=== PATIENT | female | born 1950 | race Caucasian/White ===

== ENCOUNTER 2023-01-16 21:18 | Emergency (ER) | payer MEDICARE ==
[~2023-01-16] VITALS: Ht 160 cm; Wt 63.2 kg
[2023-01-16 21:43] LABS: BASOPHILS # (AUTO) 0.1 X10'3 (0-0.2); BASOPHILS % (AUTO) 0.2 % (0-1); EOSINOPHILS % (AUTO) 0 % (0-6); HEMOGLOBIN 10.3 g/dl (12.0-16.0)
[2023-01-16 21:45] LABS: HEMATOCRIT 33.3 % (35.0-45.0); MEAN CORPUSCULAR HGB CONC 30.8 g/dL (33.0-36.5); MEAN CORPUSCULAR VOLUME 87.7 FL (78-98); MEAN PLATELET VOLUME 7.6 FL (7.4-10.4); MONOCYTES # (AUTO) 1.2 X10'3 (0-0.9); MONOCYTES % (AUTO) 4.2 % (2-12); NEUTROPHILS # (AUTO) 11.8 X10'3 (1.8-7.7); NEUTROPHILS % (AUTO) 40.6 % (42-75); PLATELET COUNT 400 X10'3 (140-440)
[2023-01-16 21:50] LABS: WHITE BLOOD COUNT 29.1 X10'3 (4.5-11.0)
[2023-01-16 21:58] LABS: ALANINE AMINOTRANSFERASE 21 U/L (12-78); ALBUMIN 2.9 G/DL (3.4-5.0); ALBUMIN/GLOBULIN RATIO 0.8 (1.1-1.5); ALKALINE PHOSPHATASE 95 IU/L (46-116); ANION GAP 12 (8-16); ASPARTATE AMINO TRANSFERASE 13 U/L (10-37); BILIRUBIN,TOTAL 0.2 MG/DL (0.1-1.0); BLOOD UREA NITROGEN 24 MG/DL (7-18); BUN/CREATININE RATIO 24.5 (10.0-20.0); CALCIUM 8.6 MG/DL (8.5-10.1); CHLORIDE 108 MMOL/L (99-107); CREATININE 0.98 MG/DL (0.40-0.90); GLUCOSE 139 MG/DL (70-104); POTASSIUM 3.6 MMOL/L (3.5-5.1); SODIUM 146 MMOL/L (135-145); TOTAL PROTEIN 6.4 G/DL (6.4-8.2); eGFR 56 ML/MIN
[2023-01-16 22:04] LABS: MAGNESIUM 2.3 MG/DL (1.5-2.4)
[2023-01-16 22:39] LABS: TOTAL CELLS COUNTED 100
[2023-01-16 22:42] LABS: ANISOCYTOSIS 1+; PLATELET ESTIMATE NORMAL
[2023-01-17] MEDS ORDERED: apixaban 5mg tablet PO SCH (01:25)
[2023-01-17] MEDS ORDERED: QUET-1 PO (01:28)
[2023-01-17] MEDS ORDERED: APIX5TAB3 PO (01:28)
[2023-01-17 02:01] VITALS: BP 141/77
== END 2023-01-17 02:02 | disposition home or self-care (01) ==
LOC: ER 21:19
DX: J44.1 Chronic obstructive pulmonary disease with (acute) exacerbation (principal); E78.00 Pure hypercholesterolemia, unspecified; I10 Essential (primary) hypertension; F31.9 Bipolar disorder, unspecified; F17.200 Nicotine dependence, unspecified, uncomplicated; Z79.899 Other long term (current) drug therapy
CPT/HCPCS: 36415; 71046; 80053; 83735; 83880; 84145; 84484; 85007; 85025; 93005; 99285

== ENCOUNTER 2023-03-01 12:45 | Emergency (ER) | payer MEDICARE, OTHER ==
[~2023-03-01] VITALS: Ht 160 cm; Wt 63.6 kg
[~2023-03-01 12:45] MED LIST: APIX5TAB3 PO; QUET-1 PO
[2023-03-01] MEDS ORDERED: ipratropium/albuterol 3ml nebule NEB ONE (14:40)
[2023-03-01] MEDS ORDERED: BENZ-38 PO (14:53)
[2023-03-01 15:17] VITALS: BP 131/92
== END 2023-03-01 15:18 | disposition home or self-care (01) ==
LOC: ER 12:46
DX: J44.1 Chronic obstructive pulmonary disease with (acute) exacerbation (principal); E78.00 Pure hypercholesterolemia, unspecified; I10 Essential (primary) hypertension; F31.9 Bipolar disorder, unspecified; F17.200 Nicotine dependence, unspecified, uncomplicated; Z79.899 Other long term (current) drug therapy
CPT/HCPCS: 94640; 94760; 99283

== ENCOUNTER 2023-05-23 16:49 | Emergency (ER) | payer BC, OTHER ==
[~2023-05-23] VITALS: Ht 160 cm; Wt 66.6 kg
[2023-05-23 16:58] VITALS: BP 128/67; TEMP 98.7
[2023-05-23] MEDS ORDERED: ipratropium/albuterol 3ml nebule NEB PRN (18:10)
[2023-05-23] MEDS ORDERED: AZIT500T2 PO (20:17)
[2023-05-23] MEDS ORDERED: PRED20TA PO (20:17)
[2023-05-23] MEDS ORDERED: ALBU8HFA INH (20:17)
[2023-05-23] MEDS ORDERED: ipratropium/albuterol 3ml nebule NEB STA (20:25)
--- NOTE | 2023-05-23 20:35 | NUR ---
RT AT BS
[2023-05-23 20:42] VITALS: PULSE 76; RESP 16; O2SAT 92
--- NOTE | 2023-05-23 20:48 | NUR ---
CALLED [facility] TO VERIFY STATUS AND FLO AT [facility] STATED WE CAN SEND HER BACK THERE. [facility] WAS CALLED FOR THIS PT WITH A 45 MINUTE ETA.
[2023-05-23 20:49] VITALS: PULSE 76; RESP 16; O2SAT 100
== END 2023-05-23 21:00 | disposition home or self-care (01) ==
LOC: ER 16:50
DX: J44.9 Chronic obstructive pulmonary disease, unspecified (principal); I11.0 Hypertensive heart disease with heart failure; F31.9 Bipolar disorder, unspecified; E11.9 Type 2 diabetes mellitus without complications; Z79.899 Other long term (current) drug therapy
CPT/HCPCS: 71045; 94640; 94760; 99283

== ENCOUNTER 2023-09-12 13:56 | Emergency (ER) | payer BC ==
[~2023-09-12] VITALS: Ht 160 cm; Wt 61.0 kg
[~2023-09-12 13:56] MED LIST changes: +ALBU8HFA INH; +PRED20TA PO
[2023-09-12 14:00] VITALS: BP 102/63; TEMP 97.6
[2023-09-12] MEDS ORDERED: ipratropium/albuterol 3ml nebule NEB ONE (17:00)
[2023-09-12 17:12] VITALS: PULSE 73; RESP 16; O2SAT 94
[2023-09-12 17:21] VITALS: PULSE 78; RESP 18; O2SAT 99
[2023-09-12] MEDS ORDERED: AZIT250T13 PO (17:29)
[2023-09-12] MEDS ORDERED: ALBU8HFA INH (17:29)
== END 2023-09-12 17:58 | disposition home or self-care (01) ==
LOC: ER 13:57
DX: J44.1 Chronic obstructive pulmonary disease with (acute) exacerbation (principal); J20.1 Acute bronchitis due to Hemophilus influenzae; E78.00 Pure hypercholesterolemia, unspecified; I10 Essential (primary) hypertension; J44.9 Chronic obstructive pulmonary disease, unspecified; F31.9 Bipolar disorder, unspecified; Z79.899 Other long term (current) drug therapy
CPT/HCPCS: 94640; 94760; 99283

== ENCOUNTER 2023-11-22 18:09 | Emergency (ER) | payer BC ==
[~2023-11-22] VITALS: Ht 160 cm; Wt 63.4 kg
[2023-11-22 18:12] VITALS: TEMP 97.5
[2023-11-22] MEDS: ondansetron/PF 4mg/2ml inj IV ONE (19:24)
[2023-11-22] MEDS: morphine 4 MG/ML inj SYRINge IV ONE (19:28)
[2023-11-22 19:52] VITALS: BP 127/78; PULSE 80; RESP 14; O2SAT 91
== END 2023-11-22 19:51 | disposition home or self-care (01) ==
LOC: ER 18:09
DX: S70.02XA Contusion of left hip, initial encounter (principal); Z79.899 Other long term (current) drug therapy; X58.XXXA Exposure to other specified factors, initial encounter; Y93.89 Activity, other specified; Y92.89 Other specified places as the place of occurrence of the external cause; Y99.8 Other external cause status
CPT/HCPCS: 73522; 96374; 96375; 99284; J2270; J2405; 96366

== ENCOUNTER → 2024-01-22 | Emergency (ER) | payer BC ==
[~2024-01-22] VITALS: Ht 160 cm; Wt 65.0 kg
[~2024-01-22] MED LIST changes: +BENZ-38 PO
[2024-01-22 18:31] VITALS: TEMP 98
[2024-01-22 20:11] LABS: BASOPHILS # (AUTO) 0.1 X10'3 (0-0.2); BASOPHILS % (AUTO) 0.7 % (0-1); EOSINOPHILS # (AUTO) 0.2 X10'3 (0-0.9); EOSINOPHILS % (AUTO) 2.2 % (0-6); HEMOGLOBIN 10.6 g/dl (12.0-16.0); MONOCYTES # (AUTO) 0.4 X10'3 (0-0.9); PLATELET COUNT 348 X10'3 (140-440)
[2024-01-22 20:13] LABS: HEMATOCRIT 33.2 % (35.0-45.0); LYMPHOCYTES # (AUTO) 5.3 X10'3 (1.1-4.8); MEAN CORPUSCULAR HEMOGLOBIN 26.1 PG (27.0-31.0); MEAN CORPUSCULAR HGB CONC 31.9 g/dL (33.0-36.5); MEAN CORPUSCULAR VOLUME 81.8 FL (78-98); MEAN PLATELET VOLUME 8.1 FL (7.4-10.4); MONOCYTES % (AUTO) 4.3 % (2-12); NEUTROPHILS # (AUTO) 3.5 X10'3 (1.8-7.7); NEUTROPHILS % (AUTO) 36.8 % (42-75); RED BLOOD COUNT 4.06 X10'6 (4.20-5.60); RED CELL DISTRIBUTION WIDTH 15.8 % (11.5-14.5); WHITE BLOOD COUNT 9.5 X10'3 (4.5-11.0)
[2024-01-22 20:22] LABS: ALBUMIN 3.5 G/DL (3.4-5.0); ANION GAP 6 (8-16); BLOOD UREA NITROGEN 22 MG/DL (7-18); BUN/CREATININE RATIO 25.6 (10.0-20.0); CALCIUM 8.9 MG/DL (8.5-10.1); CHLORIDE 107 MMOL/L (99-107); CREATININE 0.86 MG/DL (0.40-0.90); GLUCOSE 108 MG/DL (70-104); POTASSIUM 3.8 MMOL/L (3.5-5.1); PRO BRAIN NATRIURETIC PEPTIDE 212 PG/ML (0-125); SODIUM 143 MMOL/L (135-145); TOTAL CARBON DIOXIDE 30.1 MMOL/L (24-32); eCRCL 48 ML/MIN; eGFR 65 ML/MIN
[2024-01-22 21:37] LABS: PLATELET ESTIMATE NORMAL; TOTAL CELLS COUNTED 100
[2024-01-22 21:39] LABS: SMUDGE CELLS FEW
[2024-01-22 22:44] VITALS: BP 157/84; PULSE 67; RESP 18; O2SAT 99
== END | disposition home or self-care (01) ==
LOC: ER 18:03
DX: R05.9 Cough, unspecified (principal)
CPT/HCPCS: 36415; 71046; 80048; 83880; 85007; 85025; 87040; 93005; 99285

== ENCOUNTER 2024-02-13 14:53 | Emergency (ER) | payer BC ==
[~2024-02-13] VITALS: Ht 160 cm; Wt 62.7 kg
[2024-02-13 15:31] VITALS: BP 135/66; PULSE 76; RESP 18; TEMP 99.3; O2SAT 97
[2024-02-13] MEDS ORDERED: HYDR-3965 PO (16:20)
== END 2024-02-13 17:10 | disposition home or self-care (01) ==
LOC: ER 14:54
DX: M20.42 Other hammer toe(s) (acquired), left foot (principal); I25.10 Atherosclerotic heart disease of native coronary artery without angina pectoris; E78.00 Pure hypercholesterolemia, unspecified; I10 Essential (primary) hypertension; J44.9 Chronic obstructive pulmonary disease, unspecified; E11.9 Type 2 diabetes mellitus without complications; F41.9 Anxiety disorder, unspecified; F32.A Depression, unspecified; Z86.711 Personal history of pulmonary embolism
CPT/HCPCS: 73630; 99283

== ENCOUNTER 2024-02-22 09:14 | Emergency (ER) | payer BC ==
[~2024-02-22] VITALS: Ht 165.1 cm; Wt 56.0 kg
[~2024-02-22 09:14] MED LIST changes: +HYDR-3965 PO
[2024-02-22 09:27] VITALS: TEMP 98.2
[2024-02-22] MEDS: albuterol 2.5 MG/3 ML nebule NEB SCH (10:44)
[2024-02-22 10:45] VITALS: PULSE 67; RESP 16; O2SAT 99
[2024-02-22 10:52] VITALS: PULSE 68; RESP 16; O2SAT 98
[2024-02-22] MEDS: methylPREDNISolone sod succ 125mg/2ml vial IV ONE (11:04)
[2024-02-22 11:08] VITALS: BP 142/64; PULSE 68; O2SAT 93
[2024-02-22 11:18] LABS: BASOPHILS % (AUTO) 0.3 % (0-1); EOSINOPHILS # (AUTO) 0.2 X10'3 (0-0.9); EOSINOPHILS % (AUTO) 1.7 % (0-6); HEMATOCRIT 31.5 % (35.0-45.0); HEMOGLOBIN 9.5 g/dl (12.0-16.0); LYMPHOCYTES # (AUTO) 3.5 X10'3 (1.1-4.8); MEAN CORPUSCULAR HEMOGLOBIN 23.4 PG (27.0-31.0); MEAN CORPUSCULAR HGB CONC 30.3 g/dL (33.0-36.5); MEAN CORPUSCULAR VOLUME 77.2 FL (78-98); MEAN PLATELET VOLUME 8.3 FL (7.4-10.4); MONOCYTES # (AUTO) 0.4 X10'3 (0-0.9); MONOCYTES % (AUTO) 4.3 % (2-12); NEUTROPHILS # (AUTO) 6.1 X10'3 (1.8-7.7); NEUTROPHILS % (AUTO) 59.7 % (42-75); PLATELET COUNT 247 X10'3 (140-440); RED BLOOD COUNT 4.07 X10'6 (4.20-5.60); RED CELL DISTRIBUTION WIDTH 17.7 % (11.5-14.5); WHITE BLOOD COUNT 10.3 X10'3 (4.5-11.0)
[2024-02-22 11:34] LABS: ALANINE AMINOTRANSFERASE 23 U/L (12-78); ALBUMIN 3.2 G/DL (3.4-5.0); ALKALINE PHOSPHATASE 103 IU/L (46-116); ANION GAP 5 (8-16); ASPARTATE AMINO TRANSFERASE 25 U/L (10-37); BILIRUBIN,TOTAL 0.2 MG/DL (0.1-1.0); BLOOD UREA NITROGEN 16 MG/DL (7-18); BUN/CREATININE RATIO 21.6 (10.0-20.0); CALCIUM 8.5 MG/DL (8.5-10.1); CHLORIDE 106 MMOL/L (99-107); CREATININE 0.74 MG/DL (0.40-0.90); GLUCOSE 97 MG/DL (70-104); POTASSIUM 3.2 MMOL/L (3.5-5.1); SODIUM 142 MMOL/L (135-145); TOTAL CARBON DIOXIDE 31.4 MMOL/L (24-32); TOTAL PROTEIN 6.4 G/DL (6.4-8.2); eCRCL 60 ML/MIN; eGFR 77 ML/MIN
== END 2024-02-22 13:18 | disposition home or self-care (01) ==
LOC: ER 09:14
DX: J44.9 Chronic obstructive pulmonary disease, unspecified (principal); E78.00 Pure hypercholesterolemia, unspecified; I10 Essential (primary) hypertension; E11.9 Type 2 diabetes mellitus without complications; F41.9 Anxiety disorder, unspecified; F32.A Depression, unspecified; Z86.73 Personal history of transient ischemic attack (TIA), and cerebral infarction without residual deficits; Z79.52 Long term (current) use of systemic steroids
CPT/HCPCS: 36415; 71045; 80053; 84484; 85025; 93005; 94640; 96374; 99285; J2919; 94760

== ENCOUNTER 2024-09-19 19:24 | Emergency (ER) | payer BC ==
[~2024-09-19] VITALS: Ht 160 cm; Wt 60.6 kg
[~2024-09-19 19:24] MED LIST changes: -BENZ-38 PO; -HYDR-3965 PO
[2024-09-19 20:03] LABS: BASOPHILS # (AUTO) 0.1 X10'3 (0-0.2); BASOPHILS % (AUTO) 0.7 % (0-1); EOSINOPHILS # (AUTO) 0.4 X10'3 (0-0.9); EOSINOPHILS % (AUTO) 3.3 % (0-6); HEMOGLOBIN 10.4 g/dl (12.0-16.0); LYMPHOCYTES # (AUTO) 4.9 X10'3 (1.1-4.8); LYMPHOCYTES % (AUTO) 41.9 % (21-51); MEAN CORPUSCULAR HEMOGLOBIN 26.3 PG (27.0-31.0); MEAN CORPUSCULAR HGB CONC 31.4 g/dL (33.0-36.5); MEAN CORPUSCULAR VOLUME 83.5 FL (78-98); MEAN PLATELET VOLUME 8.1 FL (7.4-10.4); MONOCYTES # (AUTO) 0.4 X10'3 (0-0.9); MONOCYTES % (AUTO) 3.4 % (2-12); NEUTROPHILS % (AUTO) 50.7 % (42-75); PLATELET COUNT 430 X10'3 (140-440); RED BLOOD COUNT 3.95 X10'6 (4.20-5.60); RED CELL DISTRIBUTION WIDTH 16.1 % (11.5-14.5); WHITE BLOOD COUNT 11.8 X10'3 (4.5-11.0)
[2024-09-19 20:06] LABS: ALANINE AMINOTRANSFERASE 15 U/L (12-78); ALBUMIN 3.1 G/DL (3.4-5.0); ALBUMIN/GLOBULIN RATIO 0.8 (1.1-1.5); ALKALINE PHOSPHATASE 156 IU/L (46-116); ANION GAP 9 (8-16); ASPARTATE AMINO TRANSFERASE 17 U/L (10-37); BILIRUBIN,TOTAL 0.3 MG/DL (0.1-1.0); BLOOD UREA NITROGEN 18 MG/DL (7-18); BUN/CREATININE RATIO 23.1 (10.0-20.0); CALCIUM 8.7 MG/DL (8.5-10.1); CHLORIDE 105 MMOL/L (99-107); CREATININE 0.78 MG/DL (0.40-0.90); GLUCOSE 117 MG/DL (70-104); POTASSIUM 3.6 MMOL/L (3.5-5.1); SODIUM 142 MMOL/L (135-145); TOTAL PROTEIN 7.1 G/DL (6.4-8.2); eCRCL 52 ML/MIN; eGFR 72 ML/MIN
[2024-09-19] MEDS ORDERED: ipratropium/albuterol 3ml nebule NEB PRN (21:15)
[2024-09-19] MEDS: ipratropium/albuterol 3ml nebule NEB PRN (21:49)
[2024-09-19 21:50] VITALS: PULSE 78; RESP 20; O2SAT 92
[2024-09-19 21:59] VITALS: PULSE 81; RESP 18; O2SAT 99
[2024-09-19 22:30] VITALS: BP 114/85; PULSE 96; RESP 18; TEMP 98.6; O2SAT 96
[2024-09-19] MEDS ORDERED: FLUT1DIS20 INH (22:30)
== END 2024-09-19 22:42 | disposition home or self-care (01) ==
LOC: ER 19:24
DX: J44.9 Chronic obstructive pulmonary disease, unspecified (principal); E78.00 Pure hypercholesterolemia, unspecified; I10 Essential (primary) hypertension; E11.9 Type 2 diabetes mellitus without complications; F32.A Depression, unspecified; F41.9 Anxiety disorder, unspecified; Z87.891 Personal history of nicotine dependence; Z86.73 Personal history of transient ischemic attack (TIA), and cerebral infarction without residual deficits; Z98.890 Other specified postprocedural states
CPT/HCPCS: 36415; 71046; 80053; 85025; 94640; 94760; 99284

== ENCOUNTER 2025-01-22 15:06 | Inpatient (IN) | payer BC ==
[~2025-01-22] VITALS: Ht 160 cm; Wt 62.3 kg
[2025-01-22] VITALS (9 sets, daily range): BP systolic 98–121; BP diastolic 39–62; PULSE 60–87; RESP 16–20; TEMP 97.5–98.4; O2SAT 96–98
[~2025-01-22 15:06] MED LIST changes: +FLUT1DIS20 INH
--- NOTE | 2025-01-22 15:18 | ELECTROCARDIOGRAPH REPORT ---
[facility] Test Date: 2025-01-22 Test Time: 15:16:10 Pat Name: MÓNICA JETT Department: EMERGENCY ROOM Room: Gender: F Sheet Hanger: : 1950 Requested By: NIXON AYERS Order Number: [id number] Reading MD: Dr. Augusto Durham Measurements Intervals [place] Rate: 97 P: 88 IA: 164 QRS: 91 QRSD: 72 T: 65 QT: 328 QTc: 417 Interpretive Statements Sinus rhythm Right axis deviation Electronically Signed On 01-22-2025 19:21:[address] Augusto Durham Please click the below link to view image of tracing.
--- NOTE | 2025-01-22 15:29 | Physician Documentation ---
History of Present Illness ~ Chief Complaint: Leg Pain Stated Complaint: SOB Time Seen by MD: 17:54 OK to notify your PCP?: Yes Primary Medical Doctor: Kevin Source: patient Mode of Arrival: POV Exam Limitations: no limitations HPI This is a 74-year-old female who states she was homeless and currently resides at the [facility]. She states that is as of late she has been increasingly more dizzy, weak, shortness of breath with the restless legs. She states this has been going on for years however it has gotten progressively worse as of late. She does not give an exact timeframe. She says she has had dark stools however she states she was taking a medication for her CLL that causes dark stools. She denies frankly bloody stools. She denies abdominal pain. She denies vomiting or hematemesis. Tetanus witin 5 years: No Medication Reconciliation Allergies: Coded Allergies: No Known Allergies (Unverified , 01/22/25) Scheduled Apixaban (Eliquis), 1 TAB PO Q12H Budesonide/Formoterol Fumarate (Budesonide-Formoterol 80-4.5), 2 PUFFS PO BID, (Reported) Fluticasone/Salmeterol (Advair 250-50 Diskus), 1 PUFFS INH Q12H Prednisone* (Prednisone*), 2 TAB PO DAILY Quetiapine Fumarate (Quetiapine Fumarate), 1 TAB PO HS, (Reported) Scheduled PRN albuterol inhaler (Pro-Air Inhaler), 1 PUFF INH QID PRN for cough & congestion Miscellaneous Medications Alprazolam (Alprazolam), (Reported) Pramipexole Di-Hcl (Pramipexole Dihydrochloride), (Reported) albuterol inhaler (Pro-Air Inhaler), (Reported) Discontinued Medications Quetiapine Fumarate (Seroquel), 1 TAB PO HS Discontinued Reason: patient no longer taking Past Medical History Past Medical History: CVA/TIA/Stroke, High Cholesterol, Hypertension, COPD, Pulmonary Embolism, Diabetes, Leukemia, Anxiety, Depression Past Surgical History: orthopedic surgeries Other Past Surgical History: eye surgery Alcohol Use: None Drug Use: none Lives In: Home Physical Exam Vital Signs: Temperature: 98.7, Source: Temporal, Heart Rate: 99, Respiratory Rate: 18, BP: 80/36, Pulse Oximetry: 96, Weight: 62.270 Pulse Oximetry Reflects: adequate oxygenation Physical Exam VITALS: Reviewed and as above. GENERAL: Alert, nontoxic appearing, no apparent distress. RESPIRATORY: No increased work of breathing, no respiratory distress, speaking in full clear sentences General Appearance: alert, WD/WN, no apparent distress Head: normal inspection EENT: PERRL/EOMI, normal ENT inspection Neck: non-tender, full range of motion, normal alignment, normal inspection Respiratory No accessory muscle use or retractions. Lungs are clear to auscultation in all mackenzie. Cardiovascular No rubs, gallops or murmurs. No peripheral edema, cyanosis or clubbing of the extremities. Gastrointestinal Stool guaiac negative Distal Function: normal capillary refill Skin The skin appears slightly pale and cool however dry. Neurologic: oriented x4, engraver block II-XII nml as tested, memory intact, oriented to time, oriented to person, oriented to place, oriented to events Psychiatric: normal mood/affect Progress Results/Orders Reviewed/noted all lab results: Yes Results/Orders Orders - MATT AYERS Chest,Single View (01/22/25 15:29) Monitor (01/22/25 15:14) Saline Lock (01/22/25 15:14) Oxygen (01/22/25 15:14) Cbc/Diff (01/22/25 15:14) Electrocardiogram (01/22/25 15:14) Pathology Review (01/22/25 15:19) Lrpc - Active Bleeding (01/22/25 17:55) Page Hospitalist (01/22/25 18:36) Completed Orders - MATT AYERS Chest,Single View (01/22/25 15:29) PBNP (01/22/25 15:14) Electrocardiogram (01/22/25 15:14) CMP (01/22/25 15:14) Hs Troponin I W Calculations (01/22/25 15:14) Hs Troponin I W Calculations (01/22/25 17:14) Hs Troponin I W Calculations (01/22/25 18:14) Normal Saline 1000ml (Sodium Chloride 10 (01/22/25 17:55) Medications Received in ER Medications (Trade) Dose Ordered Sig/Elida Route PRN Reason Start Time Stop Time Status Last Admin Dose Admin Sodium Chloride 1,000 ml @ 1,000 mls/hr ONCE ONCE IV 01/22/25 17:55 01/22/25 18:54 DC 01/22/25 18:44 1,000 MLS/HR Vital Signs 01/22/25 01/22/25 01/22/25 01/22/25 15:10 18:14 18:14 19:00 Temp 98.7 98.7 97.8 Pulse 99 86 84 Resp 18 16 16 18 B/P (MAP) 80/36 101/38 (59) 117/42 (67) Pulse Ox 96 99 97 O2 Flow Rate 0 01/22/25 01/22/25 01/22/25 01/22/25 19:07 19:20 19:25 19:25 Temp 97.6 98.4 98.4 Pulse 87 82 79 Resp 16 16 16 B/P (MAP) 117/45 102/48 102/48 Pulse Ox 100 O2 Delivery Nasal Cannula* O2 Flow Rate 2 FiO2 28 Laboratory Tests Test 01/22/25 15:19 01/22/25 17:12 01/22/25 18:33 White Blood Count 6.1 Red Blood Count 2.98 L Hemoglobin 5.1 *L Hematocrit 18.3 *L Mean Corpuscular Volume 61.4 L Mean Corpuscular Hemoglobin 17.2 L Mean Corpuscular Hemoglobin Concent 28.0 L Red Cell Distribution Width 22.4 H Platelet Count 237 Mean Platelet Volume 8.4 Neutrophils (%) (Auto) 49.8 Lymphocytes (%) (Auto) 43.7 Monocytes (%) (Auto) 4.3 Eosinophils (%) (Auto) 1.6 Basophils (%) (Auto) 0.6 Neutrophils # (Auto) 3.0 Lymphocytes # (Auto) 2.7 Monocytes # (Auto) 0.3 Eosinophils # (Auto) 0.1 Basophils # (Auto) 0.0 CBC Comment Platelet Estimate Normal Red Blood Cell Morphology Perf Polychromasia 1+ Hypochromasia 2+ Basophilic Stippling Anisocytosis 3+ Microcytosis 2+ Tear Drop Cells 1+ Stomatocytes Few Elliptocytes Few Sodium Level 144 Potassium Level 4.0 Chloride Level 108 H Carbon Dioxide Level 26.0 Anion Gap 10 Blood Urea Nitrogen 24 H Creatinine 0.97 H Estimated GFR/1.73 m2 56 BUN/Creatinine Ratio 24.7 H Glucose Level 109 H Calcium Level 8.3 L Total Bilirubin 0.3 Aspartate Amino Transf (AST/SGOT) 16 Alanine Aminotransferase (ALT/SGPT) 25 Alkaline Phosphatase 101 Troponin I High Sensitivity 12 15 11 Pro-B-Type Natriuretic Peptide 388 H Total Protein 5.7 L Albumin 3.3 L Globulin 2.4 L Albumin/Globulin Ratio 1.4 Chemistry Comments Troponin I High Sens Percent Delta 25 26 Troponin I Hi Sens Absolute Change 3 -4 EKG/XRAY/CT/US/VASC/MRI EKG : Intepreting Monitor?: No Additional Comment Twelve lead EKGs interpreted by me: Normal sinus rhythm rate of 97. Right axis deviation. No ectopy, ischemia, ST elevation or depression. Chest X-Ray : Interpreted By: self Views: 1 VIEW Additional Comments Chest x-ray one view interpreted by me: No acute disease process. The lung mackenzie and cardiac silhouette are appropriate. No obvious bony abnormalities. Soft tissues unremarkable. Medical Decision Making Findings MSE performed in triage and patient returned to ED lobby by nursing staff The patient was found to have a hemoglobin of 5.1 with a hematocrit of 18.3. This undoubtedly is responsible for all of her current symptoms of the dizziness, shortness of breath and probably the restless legs as well. I ordered 2 units packed RBCs to be transfused. The patient's diastolic blood pressure has been running in the 30s so before the blood was available I ordered weight based normal saline at 1500 cc. The patient was stool guaiac negative. The patient was will require hospitalization so we will page has been placed with the hospitalist. Additional Comment Dizziness. Shortness of breath. Anemia. Restless leg syndrome. COPD exacerbation. Departure Disposition: ADMITTED INPATIENT Admitted to Inpatient Unit: yes, to hospitalist Admission Level of Care: Med/Surg Impression: Primary Impression: Low hemoglobin Additional Impression: History of chronic lymphocytic leukemia Condition: Guarded Referrals: NO PRIMARY CARE PROVIDER (PCP) Critical Care Note Total Time (mins): 45 Critical Care Note This patient was found to have hemoglobin of 5.1 with a hematocrit of 18. The patient was very symptomatic and had a blood pressure of 80s over 30s. She required immediate fluid resuscitation follow up by emergent blood products and admission. Signature Scribe Signature: No scribe Attestation: The note accurately reflects work and decisions made by me.Matt TOWNSEND 01/22/25 19:51 RIRI CASSIDYP Jan 22, 2025 15:28 MATT AYERS PA Jan 22, 2025 18:08
[2025-01-22 15:30] LABS: BASOPHILS % (AUTO) 0.6 % (0-1); EOSINOPHILS # (AUTO) 0.1 X10'3 (0-0.9); EOSINOPHILS % (AUTO) 1.6 % (0-6); LYMPHOCYTES # (AUTO) 2.7 X10'3 (1.1-4.8); LYMPHOCYTES % (AUTO) 43.7 % (21-51); MEAN CORPUSCULAR HEMOGLOBIN 17.2 PG (27.0-31.0); MEAN CORPUSCULAR VOLUME 61.4 FL (78-98); MEAN PLATELET VOLUME 8.4 FL (7.4-10.4); MONOCYTES # (AUTO) 0.3 X10'3 (0-0.9); MONOCYTES % (AUTO) 4.3 % (2-12); NEUTROPHILS % (AUTO) 49.8 % (42-75); PLATELET COUNT 237 X10'3 (140-440); RED BLOOD COUNT 2.98 X10'6 (4.20-5.60); RED CELL DISTRIBUTION WIDTH 22.4 % (11.5-14.5); WHITE BLOOD COUNT 6.1 X10'3 (4.5-11.0)
--- NOTE | 2025-01-22 15:46 | RADIOLOGY REPORT ---
CHEST RADIOGRAPH Indication: CP Technique: Single frontal view of the chest was obtained Comparison: DI CHEST,SINGLE VIEW on DOS: 08/18/24, DI CHEST,SINGLE VIEW on DOS: 02/22/24, DI CHEST,SIN GLE VIEW on DOS: 05/23/23 FINDINGS: Lines and Tubes: None Lungs: No focal consolidation. Pleura: No effusion. No pneumothorax. Cardiomediastinal contours: Unremarkable Bones: No acute osseous abnormality. IMPRESSION: 1. No acute cardiopulmonary disease.
[2025-01-22 15:57] LABS: ALANINE AMINOTRANSFERASE 25 U/L (12-78); ALBUMIN 3.3 G/DL (3.4-5.0); ALBUMIN/GLOBULIN RATIO 1.4 (1.1-1.5); ALKALINE PHOSPHATASE 101 IU/L (46-116); ANION GAP 10 (8-16); ASPARTATE AMINO TRANSFERASE 16 U/L (10-37); BILIRUBIN,TOTAL 0.3 MG/DL (0.1-1.0); BLOOD UREA NITROGEN 24 MG/DL (7-18); BUN/CREATININE RATIO 24.7 (10.0-20.0); CALCIUM 8.3 MG/DL (8.5-10.1); CHLORIDE 108 MMOL/L (99-107); CREATININE 0.97 MG/DL (0.40-0.90); GLUCOSE 109 MG/DL (70-104); PRO BRAIN NATRIURETIC PEPTIDE 388 PG/ML (0-125); SODIUM 144 MMOL/L (135-145); TOTAL PROTEIN 5.7 G/DL (6.4-8.2); eCRCL 42 ML/MIN; eGFR 56 ML/MIN
[2025-01-22 16:13] LABS: HEMATOCRIT 18.3 % (35.0-45.0); HEMOGLOBIN 5.1 g/dl (12.0-16.0)
[2025-01-22 17:17] LABS: ANISOCYTOSIS 3+; HYPOCHROMASIA 2+; MICROCYTOSIS 2+; PLATELET ESTIMATE NORMAL
[2025-01-22 17:19] LABS: ELLIPTOCYTES FEW; POLYCHROMASIA 1+; TEAR DROP CELLS 1+
[2025-01-22 17:20] LABS: STOMATOCYTES FEW
[2025-01-22] MEDS: normal saline 1000ml 1,000 ML IV ONE (18:44)
[2025-01-22] MEDS ORDERED: BUDE10.27 PO (19:25)
[2025-01-22] MEDS ORDERED: ondansetron/PF 4mg/2ml inj IV PRN (19:25)
[2025-01-22] MEDS ORDERED: QUET100T34 PO (19:25)
[2025-01-22] MEDS ORDERED: PRAM0.258 (19:25)
[2025-01-22] MEDS ORDERED: potassium Cl 40MEQ/1/2NS 520ml 520 ML IV PRN (19:25)
[2025-01-22] MEDS ORDERED: magnesium sulf-water 2g/50mL 50 ML IV PRN (19:25)
[2025-01-22] MEDS ORDERED: magnesium Cl slow-release 64mg tablet PO PRN (19:25)
[2025-01-22] MEDS ORDERED: morphine 2 MG/ML inj. syringe IV PRN (19:25)
[2025-01-22] MEDS ORDERED: potassium Cl 20 mEq SR tablet PO PRN ×2 (19:25)
[2025-01-22] MEDS ORDERED: acetaminophen 325mg tablet PO PRN (19:25)
[2025-01-22] MEDS ORDERED: magnesium sulf-water 4G/100mL 100 ML IV PRN (19:25)
[2025-01-22] MEDS ORDERED: magnesium hydroxide 30ml (MOM) UD suspension PO PRN (19:25)
[2025-01-22] MEDS ORDERED: ALPR1TAB7 (19:25)
[2025-01-22] MEDS ORDERED: ALBU8HFA (19:25)
[2025-01-22] MEDS ORDERED: mag hydrox/Alum hydrox/simeth 30ml oral suspension PO PRN (19:25)
[2025-01-22] MEDS: K and/or MAG REPLACEMENT MC SCH (20:00)
[2025-01-22] MEDS: morphine 2 MG/ML inj. syringe IV PRN (20:35)
[2025-01-22] MEDS: docusate sod 100mg capsule PO SCH (20:41)
--- NOTE | 2025-01-22 21:01 | HISTORY AND PHYSICAL-Residence ---
History & Physical Providers to CC Resident Creating Document: MARIO FOSS CC: TAURUS ONEILL MD ~ History of Present Illness Primary Medical Doctor: Kevin Reason for Admit\Complaint: Generalized weakness History of Present Illness Patient is a 74-year-old female with history of CLL, hypertension, stroke, gastric ulcer and hyperlipidemia who came to the ED due to generalized weakness. Patient reports that she has been experiencing increasing weakness for the past 2 weeks, accompanied by worsening dizziness/lightheadedness worse when standing, as well as shortness of breath on exertion. She denies orthopnea or PND. She also denies fevers, chills, body aches, chest pain, palpitations or any other subjective symptoms. She does report having dark formed stools for a long time now. Of note, patient was diagnosed with CLL in 2011, and was being followed by Dr. Blake, but has not followed with her in a long time. Currently only follows with her PCP Dr. Brown. She does report she takes iron pills for chronic anemia, she does not recall her baseline hemoglobin. Allergies: Coded Allergies: No Known Allergies (Unverified , 01/22/25) Home Medications Home Medications Active Advair 250-50 Diskus (Salmeterol Xinafoate/Fluticasone) 1 Each Disk.w.dev 1 Puffs INH Q12H 30 Days Prednisone* (Prednisone) 20 Mg Tablet 2 Tab PO DAILY 5 Days Pro-Air Inhaler (Albuterol) 8.5 Gm Inhaler 1 Puff INH QID PRN Eliquis (Apixaban) 5 Mg Tablet 1 Tab PO Q12H 30 Days Reported Pro-Air Inhaler (Albuterol) 8.5 Gm Inhaler Alprazolam 1 Mg Tablet Budesonide-Formoterol 80-4.5 (Budesonide/Formoterol Fumarate) 80 Mcg-4.5 Mcg/Actuation Hfa.aer.ad 2 Puffs PO BID Quetiapine Fumarate 100 Mg Tablet 1 Tab PO HS Pramipexole Dihydrochloride (Pramipexole Di-Hcl) 0.25 Mg Tablet Past Medical History Past Medical History CLL, hypertension, stroke, gastric ulcer and hyperlipidemia Past Surgical History Surgical History Comment Foot surgery x3 Unspecified eye surgery Family History Family History: FH: heart disease FATHER FH: leukemia MOTHER FH: stroke FATHER FH: throat cancer Sister FH: type 2 diabetes FATHER Past Social History Smoking: Cigarettes (Half pack a day. Smokes since age 26) Alcohol Use: None Drug Use: None Lives In: Homeless (Lives at the [facility]) ROS ROS All systems were reviewed except for pertinent positives mentioned in HPI Constitutional: Reports: see HPI Eyes: Denies: no symptoms reported, see HPI, pain, discharge, blurred vision, double vision, itching, photophobia, redness, tearing, other ENT: Denies: no symptoms reported, see HPI, ear pain, ear bleeding, ear discharge, hearing loss, ear ringing, nose pain, nose bleeding, nose congestion, nose discharge, throat pain, throat swelling, voice change, mouth pain, mouth bleeding, mouth swelling, other Respiratory: Reports: see HPI Cardiovascular: Denies: no symptoms reported, see HPI, chest pain, left arm pain, diaphoresis, lightheadedness, syncope, edema, palpitations, irregular heart rate, other Gastrointestinal: Reports: see HPI Genitourinary: Denies: no symptoms reported, see HPI, burning, discharge, dysuria, frequency, flank pain, hematuria, incontinence, pain, decreased urine output, urgency, other Female Genitalia: Denies: no reported symptoms, see HPI, vaginal discharge, vaginal pain, pelvic pain, abnormal bleeding, dyspareunia, , other Neurological: Reports: see HPI Musculoskeletal: Denies: no symptoms reported, see HPI, pain, swelling, back pain, gout, joint pain, joint swelling, muscle pain, muscle swelling, muscle stiffness, neck pain, other Integumentary: Denies: no symptoms reported, see HPI, rash, itching, lesions, lumps, bruise(s), wound(s), laceration(s), dryness, change in color, other Allergic/Immunologic: Denies: no symptoms reported, see HPI, hives, itching, frequent infections, difficulty healing, other Hematologic/Lymphatic: Denies: no symptoms reported, see HPI, anemia, blood clots, easy bleeding, easy bruising, swollen glands, other Endocrine: Denies: no symptoms reported, see HPI, excessive sweating, flushing, intolerance to cold, intolerance to heat, increased hunger, increased thrist, increased urine, unexplained weight gain, unexplained weight loss, other Psychiatric: Denies: no symptoms reported, see HPI, depression, anxiety, sleeplessness, hopeless, suicidal, hallucinations, other Exam Vitals: Vital Signs Date Time Temp Pulse Resp B/P (MAP) Pulse Ox O2 Delivery O2 Flow Rate FiO2 01/22/25 20:35 14 01/22/25 20:00 97.5 74 106/39 01/22/25 19:20 100 Nasal Cannula* 2 28 General: General: awake, alert oriented to place, time, and person HEENT: Marked pallor present, no icterus, moist mucous membranes Neck: No masses and tenderness Resp: Unlabored. Lungs clear to auscultation bilaterally. Heart: Regular Rate and rhythm, normal S1 and S2 without murmur, rub or gallop Abdomen: Soft and non tender no organomegaly, no guarding and rigidity, bowel sounds present Neuro: No weakness in the upper and lower limb muscles, power of the muscles 4/5 bilateral upper and lower muscles, knee reflex present bilaterally. Cranial nerves intact Extremities: No cyanosis,clubbing or edema Skin: Warm and Dry. No lesions Advance Care Planning Advanced Care plannin - 30 Minutes Additional Plan Patient is a 74-year-old female with history of CLL, hypertension, stroke, and hyperlipidemia who came to the ED due to generalized weakness. Admitted for evaluation and management of severe anemia. Severe microcytic hypochromic anemia History of CLL History of iron-deficiency anemia GI bleed ruled out Patient used to follow with Dr. Blake, currently following with PCP Dr. Brown Hemoglobin is 5.1, hematocrit 18 Last hemoglobin per our records was 10.4 in 08/2024 Hemoccult in ED was negative per ED doc, however, not reported in labs. Dark stools possibly related to iron supplements. Occult blood was ordered Iron studies ordered 2 units of PRBC ordered in ED, currently receiving first one Will continue monitoring H&H Hypertension Hyperlipidemia History of stroke Patient states she no longer take aspirin Continue home meds once med rec is completed COPD, not in exacerbation Tobacco abuse DuoNebs q.4 p.r.n. Code Status: DNR DVT prophylaxis: Heparin GI prophylaxis: Protonix Nutrition: Regular diet PT: Ordered Prognosis: Guarded Disposition: Admit to PCU with tele monitoring. Continue medical management Mario Guillermo MD Internal Medicine Resident PGY-1 Addendum I personally reviewed the chart, labs and imaging and reviewed the patient with the team. I agree with the assessment and plan as documented by the resident. Patient was seen through remote audio-visual assessment through HIPAA compliance setup. Date of Service: Jan 22, 2025 Billing Provider: TAURUS ONEILL MD, LEONARDO LUIS Jan 22, 2025 21:01 TAURUS ONEILL MD February 02, 2025 04:24
[2025-01-22] MEDS: pantoprazole 40 MG vial IV SCH (22:11)
[2025-01-22 22:48] LABS: OCCULT BLOOD STOOL NEGATIVE (Neg)
[2025-01-23] VITALS (14 sets, daily range): BP systolic 102–141; BP diastolic 45–56; PULSE 60–77; RESP 14–20; TEMP 97.1–98.1; O2SAT 93–98
[2025-01-23 04:45] LABS: BASOPHILS # (AUTO) 0.1 X10'3 (0-0.2); BASOPHILS % (AUTO) 0.8 % (0-1); EOSINOPHILS # (AUTO) 0.2 X10'3 (0-0.9); EOSINOPHILS % (AUTO) 2.6 % (0-6); HEMATOCRIT 24.5 % (35.0-45.0); HEMOGLOBIN 7.5 g/dl (12.0-16.0); LYMPHOCYTES # (AUTO) 4.4 X10'3 (1.1-4.8); LYMPHOCYTES % (AUTO) 53.6 % (21-51); MEAN CORPUSCULAR HEMOGLOBIN 20.9 PG (27.0-31.0); MEAN CORPUSCULAR HGB CONC 30.8 g/dL (33.0-36.5); MEAN PLATELET VOLUME 8.4 FL (7.4-10.4); MONOCYTES # (AUTO) 0.4 X10'3 (0-0.9); NEUTROPHILS # (AUTO) 3.2 X10'3 (1.8-7.7); PLATELET COUNT 184 X10'3 (140-440); RED CELL DISTRIBUTION WIDTH 25.5 % (11.5-14.5); WHITE BLOOD COUNT 8.3 X10'3 (4.5-11.0)
[2025-01-23 05:26] LABS: % IRON SATURATION 35 % (11-46); IRON 144 UG/DL (49-151); TOTAL IRON BINDING CAPACITY 412 UG/DL (259-388)
[2025-01-23 05:37] LABS: ALANINE AMINOTRANSFERASE 20 U/L (12-78); ALBUMIN/GLOBULIN RATIO 1.4 (1.1-1.5); ALKALINE PHOSPHATASE 88 IU/L (46-116); ANION GAP 6 (8-16); ASPARTATE AMINO TRANSFERASE 19 U/L (10-37); BILIRUBIN,TOTAL 1.2 MG/DL (0.1-1.0); BLOOD UREA NITROGEN 22 MG/DL (7-18); BUN/CREATININE RATIO 32.4 (10.0-20.0); CALCIUM 7.9 MG/DL (8.5-10.1); CHLORIDE 110 MMOL/L (99-107); CREATININE 0.68 MG/DL (0.40-0.90); FERRITIN 4 NG/ML (8-252); GLUCOSE 75 MG/DL (70-104); POTASSIUM 3.7 MMOL/L (3.5-5.1); SODIUM 142 MMOL/L (135-145); TOTAL PROTEIN 5.1 G/DL (6.4-8.2); eCRCL 60 ML/MIN; eGFR 85 ML/MIN
[2025-01-23 07:48] LABS: ANISOCYTOSIS 3+; HYPOCHROMASIA 2+; MICROCYTOSIS 2+; PLATELET ESTIMATE NORMAL; TOTAL CELLS COUNTED 100
[2025-01-23 07:49] LABS: ELLIPTOCYTES FEW; TEAR DROP CELLS 1+
[2025-01-23] MEDS: heparin, porcine 5000 units/ml vial SQ SCH (10:25)
[2025-01-23] MEDS: ipratropium/albuterol 3ml nebule NEB PRN (10:54)
--- NOTE | 2025-01-23 21:21 | PROGRESS NOTE ---
Daily Progress Note Providers to CC ~ Antibiotic Timeout Antibiotic Ordered?: No Subjective Patient was seen in presence of charge nurse Marivel today. Patient came with a hemoglobin of 5.1 with hematocrit 24.5 which is improved to 7.5 in current labs. As per patient she is currently not following doctor the [facility] and looking for different consumer marketing specialist for her CLL and low hemoglobin and hematocrit. Patient [facility] in [facility] with Dr[facility] Queen. Objective Vital Signs Date Time Temp Pulse Resp B/P (MAP) Pulse Ox O2 Delivery O2 Flow Rate FiO2 01/23/25 21:02 18 01/23/25 19:54 75 94 Room Air* 0 21 01/23/25 16:32 98.1 124/50 (74) Result Diagram: 01/23/2542301/23/25423 General-patient not in any acute distress, alert awake oriented, not ill-appearing/age-appropriate/looks comfortable HEENT-atraumatic normocephalic, neck supple without elevated JVD, no thyromegaly or carotid bruit. No lymphadenopathy bilaterally. Eyes-no icterus or pallor seen in eyes Chest-clear to auscultation bilaterally, breathing nonlabored no tachypnea, mild wheezing, no crepitation, no crackles. Heart-S1-S2 normal, regular heart rate no murmur Abdomen bowel sounds positive on auscultation, soft nondistended nontender no guarding, no rigidity Skin no active skin rash Neurology-grossly intact, nonfocal alert awake oriented Extremity- no pedal edema able to move all 4 extremities Psychiatry - patient is not confused or agitated cooperated during physical examination Problem\Assessment\Plan Patient is a 74-year-old female with history of CLL, hypertension, stroke, and hyperlipidemia who came to the ED due to generalized weakness. Admitted for evaluation and management of severe anemia. Severe microcytic hypochromic anemia History of CLL History of iron-deficiency anemia GI bleed ruled out Patient used to follow with Dr. Blake, currently following with PCP Dr. Queen Hemoglobin is 5.1, hematocrit 18 Last hemoglobin per our records was 10.4 in 08/2024 Hemoccult in ED was negative per ED doc, however, not reported in labs. Dark stools possibly related to iron supplements. Occult blood negative Iron studies ordered 2 units of PRBC ordered in ED, currently receiving first one Will continue monitoring H&H Hypertension Hyperlipidemia History of stroke Patient states she no longer take aspirin Continue home meds once med rec is completed COPD, not in exacerbation Tobacco abuse DuoNebs q.4 p.r.n. Patient is strongly advised to stop smoking and risks explained Code Status: DNR DVT prophylaxis: Heparin GI prophylaxis: Protonix Nutrition: Regular diet PT: Ordered Patient's current condition is guarded we will continue to follow patient in AM Date of Service: Jan 23, 2025 Billing Provider: KETTY GARCIA MD Common Visit Codes: [id number] INP/OBS CARE(HIGH) KETTY GARCIA MD Jan 23, 2025 21:21
[2025-01-24 05:46] LABS: BASOPHILS # (AUTO) 0.1 X10'3 (0-0.2); EOSINOPHILS # (AUTO) 0.2 X10'3 (0-0.9); HEMATOCRIT 26.2 % (35.0-45.0); MEAN PLATELET VOLUME 8.6 FL (7.4-10.4); MONOCYTES # (AUTO) 0.4 X10'3 (0-0.9); NEUTROPHILS # (AUTO) 3.9 X10'3 (1.8-7.7); RED BLOOD COUNT 3.83 X10'6 (4.20-5.60); WHITE BLOOD COUNT 9.9 X10'3 (4.5-11.0)
[2025-01-24 05:50] LABS: BASOPHILS % (AUTO) 0.6 % (0-1); EOSINOPHILS % (AUTO) 2.3 % (0-6); HEMOGLOBIN 7.9 g/dl (12.0-16.0); LYMPHOCYTES # (AUTO) 5.3 X10'3 (1.1-4.8); LYMPHOCYTES % (AUTO) 53.7 % (21-51); MEAN CORPUSCULAR HEMOGLOBIN 20.7 PG (27.0-31.0); MEAN CORPUSCULAR HGB CONC 30.3 g/dL (33.0-36.5); MEAN CORPUSCULAR VOLUME 68.3 FL (78-98); MONOCYTES % (AUTO) 4.4 % (2-12); PLATELET COUNT 169 X10'3 (140-440); RED CELL DISTRIBUTION WIDTH 25.5 % (11.5-14.5)
[2025-01-24 06:07] LABS: ALANINE AMINOTRANSFERASE 16 U/L (12-78); ALBUMIN 2.9 G/DL (3.4-5.0); ALBUMIN/GLOBULIN RATIO 1.2 (1.1-1.5); ALKALINE PHOSPHATASE 93 IU/L (46-116); ANION GAP 5 (8-16); ASPARTATE AMINO TRANSFERASE 22 U/L (10-37); BILIRUBIN,TOTAL 0.6 MG/DL (0.1-1.0); BLOOD UREA NITROGEN 19 MG/DL (7-18); CHLORIDE 111 MMOL/L (99-107); CREATININE 0.73 MG/DL (0.40-0.90); GLUCOSE 88 MG/DL (70-104); POTASSIUM 4.1 MMOL/L (3.5-5.1); SODIUM 143 MMOL/L (135-145); TOTAL CARBON DIOXIDE 26.9 MMOL/L (24-32); TOTAL PROTEIN 5.3 G/DL (6.4-8.2); eCRCL 56 ML/MIN; eGFR 78 ML/MIN
[2025-01-24 07:46] VITALS: BP 153/58; PULSE 75; RESP 15; TEMP 97.7; O2SAT 94
[2025-01-24 08:00] VITALS: PULSE 70; RESP 16; RESP 18; O2SAT 94; O2SAT 95
[2025-01-24 10:00] VITALS: BP 146/53; PULSE 74; RESP 15; TEMP 98.1; O2SAT 94
[2025-01-24 10:03] LABS: TOTAL CELLS COUNTED 100
[2025-01-24 10:04] LABS: ANISOCYTOSIS 3+; HYPOCHROMASIA 2+; MICROCYTOSIS 2+; PLATELET ESTIMATE NORMAL; TEAR DROP CELLS FEW
[2025-01-24 10:05] LABS: ELLIPTOCYTES FEW
[2025-01-24 10:07] VITALS: RESP 14
[2025-01-24 10:11] LABS: ABSOLUTE RETICS # 117700 /CUMM (23000-93000); RETICULOCYTE % (AUTO) 3.1 % (0.5-1.5)
[2025-01-24] MEDS ORDERED: PANT40TA54 PO (12:07)
[2025-01-24 12:43] LABS: LACTATE DEHYDROGENASE 264 U/L (81-234)
--- NOTE | 2025-01-24 20:52 | DISCHARGE SUMMARY ---
Discharge Summary Providers to CC ~ Discharge Summary Admission Diagnosis: SEVERE ANEMIA Hospital Course DATE OF ADMISSION: 01/22/25 DATE OF DISCHARGE: 01/24/25 Discharge Diagnosis\\Comment: Severe anemia Microcytic anemia Hx CLL Hx MADYSON Hypertension Hyperlipidemia History of CVA Patient states she no longer take aspirin Continue home meds once med rec is completed COPD, not in exacerbation Tobacco abuse Operations\\Procedures: None Consultants: None Complications: None Condition on DC: Stable New Medications: Ferrous Sulfate (Ferrous Sulfate) 325 Mg (65 Mg Iron) Tablet 1 TAB PO MWF for 30 Days, #30 TAB 0 Refills Take 1 tablet by mouth three times weekly on an empty stomach Pantoprazole Sodium (Pantoprazole Sodium) 40 Mg Tablet.dr 40 MG PO DAILY for 30 Days, #30 TAB.SR Continued Medications: albuterol inhaler (Pro-Air Inhaler) 8.5 Gm Inhaler Alprazolam (Alprazolam) 1 Mg Tablet Apixaban (Eliquis) 5 Mg Tablet 1 TAB PO Q12H for 30 Days, #60 TAB Budesonide/Formoterol Fumarate (Budesonide-Formoterol 80-4.5) 80 Mcg-4.5 Mcg/Actuation Hfa.aer.ad 2 PUFFS PO BID Fluticasone/Salmeterol (Advair 250-50 Diskus) 1 Each Disk.w.dev 1 PUFFS INH Q12H for 30 Days, #1 INHALER 0 Refills Pramipexole Di-Hcl (Pramipexole Dihydrochloride) 0.25 Mg Tablet Quetiapine Fumarate (Quetiapine Fumarate) 100 Mg Tablet 1 TAB PO HS Discharge Summary: History of Present Illness From H&P: Didi Painting"is a 74-year-old female with history of CLL, hypertension, stroke, gastric ulcer and hyperlipidemia who came to the ED due to generalized weakness. Patient reports that she has been experiencing increasing weakness for the past 2 weeks, accompanied by worsening dizziness/l ightheadedness worse when standing, as well as shortness of breath on exertion. She denies orthopnea or PND. She also denies fevers, chills, body aches, chest pain, palpitations or any other subjective symptoms. She does report having dark formed stools for a long time now. Of note, patient was diagnosed with CLL in 2011, and was being followed by Dr. Blake, but has not followed with her in a long time. Currently only follows with her PCP Dr. Brown. She does report she takes iron pills for chronic anemia, she does not recall her baseline hemoglobin." Hospital Course Diagnostic findings were notable for microcytic anemia, elevated reticulocyte with unremarkable hemolytic panels, negative lymphocytosis, normal neutrophils, normal platelets, negative occult stool test, afebrile, normal bowel without diarrhea, unremarkable renal and liver function. Patient was treated with supportive care with 2 units of PRBC with repeat hemogram revealing stable uptrend of Hgb/Hct. Patient did not experience further complications throughout the entire hospital stay. Patient was seen and examined on the day of discharge. All labs, diagnostic workups, discharge plan discussed with patient in details during visit before discharge. All questions and concerns answered to the best of my professional knowledge. Remaining labs including vitamin B6 remains pending until the day of discharge. Due to patient's hemogram remaining stable after 2 units of PRBC transfusion and patient remaining clinically and hemodynam ically stable without signs of bleeding, further workups including intrinsic/extrinsic hemolytic anemia panels were not pursued. 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 Physical Exam General: A&Ox 3, NAD HEENT: Normocephalic, PERRLA Neck: Supple, trachea midline, no JVD Chest: Clear to auscultation bilaterally Cardiovascular: RRR, S1&S2 GI: Soft and nontender Extremities: No cyanosis/clubbing/or edema WINDOWS SERVER ADMINISTRATOR: CN II-XII intact, no focal deficits Musculoskeletal: No paraspinal muscle tenderness, no muscle spasm Skin: Warm and intact *Problems/Diagnosis: (1) Low hemoglobin Status: Acute (2) History of chronic lymphocytic leukemia Status: Chronic Total Time Spent on D/C: > 30 Minutes Date of Service: January 24, 2025 Billing Provider: RJ SALAS Common Visit Codes: 06333-GDO/OBS DISCH DAY >30min RJ SALAS January 24, 2025 20:52
[2025-01-25] MEDS ORDERED: FER325T PO ×2 (06:24)
== END 2025-01-24 12:45 | disposition home or self-care (01) | DRG 378 ==
LOC: ER 15:06 → ED HOLD 19:23 → ORTHO 4S 22:30
PROVIDERS: ADMIT Internal Medicine Critical Care Medicine; ATTEND Internal Medicine
PROC: 30233N1 Transfusion of Nonautologous Red Blood Cells into Peripheral Vein, Percutaneous Approach (ICD-10-PCS; principal; 2025-01-22)
DX: K92.2 Gastrointestinal hemorrhage, unspecified (principal); E44.0 Moderate protein-calorie malnutrition; D50.9 Iron deficiency anemia, unspecified; F41.9 Anxiety disorder, unspecified; F32.A Depression, unspecified; Z66 Do not resuscitate; E78.00 Pure hypercholesterolemia, unspecified; E11.9 Type 2 diabetes mellitus without complications; I10 Essential (primary) hypertension; J44.9 Chronic obstructive pulmonary disease, unspecified; E78.5 Hyperlipidemia, unspecified; Z79.01 Long term (current) use of anticoagulants; Z79.899 Other long term (current) drug therapy; Z86.73 Personal history of transient ischemic attack (TIA), and cerebral infarction without residual deficits; Z87.11 Personal history of peptic ulcer disease; Z86.711 Personal history of pulmonary embolism; Z85.6 Personal history of leukemia; Z68.24 Body mass index [BMI] 24.0-24.9, adult
CPT/HCPCS: 36415; 36430; 71045; 80053; 82272; 82728; 83540; 83550; 83615; 83735; 83880; 84207; 84466; 84484; 85007; 85008; 85025; 85045; 86885; 86900; 86901; 86920; 87081; 93005; 94640; 94760; 96360; 97116; 97161; 97530; 99291; A4615; G0378; J1644; J2270; J2470; J7030; J7050; P9016

== ENCOUNTER 2025-04-18 21:56 | Inpatient (IN) | payer BC ==
[~2025-04-18] VITALS: Ht 160 cm; Wt 62.2 kg
[~2025-04-18 21:56] MED LIST changes: +ALBU8HFA; -ALBU8HFA INH; +ALPR1TAB7; +BUDE10.27 PO; +FER325T PO; +PANT40TA54 PO; +PRAM0.258; -PRED20TA PO; -QUET-1 PO; +QUET100T34 PO
--- NOTE | 2025-04-18 22:10 | Physician Documentation ---
History of Present Illness ~ Chief Complaint: Leg Pain Stated Complaint: LEG PAIN Time Seen by MD: 22:07 OK to notify your PCP?: Yes Primary Medical Doctor: Kevin Source: patient, RN/MD, EMS, RN notes reviewed, EMS notes reviewed, old records Mode of Arrival: EMS Exam Limitations: no limitations HPI 75 year old female with CLL seen in bed 16 presents to the emergency department via EMS for complaints of restless leg syndrome. She states that she takes calcium for her restless leg syndrome. She states that she is feeling achy despite taking her medications. She states that she began having slurred speech yesterday. Tetanus witin 5 years: No Medication Reconciliation Allergies: Coded Allergies: No Known Allergies (Unverified , 04/18/25) Scheduled Apixaban (Eliquis), 1 TAB PO Q12H Budesonide/Formoterol Fumarate (Budesonide-Formoterol 80-4.5), 2 PUFFS PO BID, (Reported) Ferrous Sulfate (Ferrous Sulfate), 1 TAB PO MWF Fluticasone/Salmeterol (Advair 250-50 Diskus), 1 PUFFS INH Q12H Pantoprazole Sodium (Pantoprazole Sodium), 40 MG PO DAILY Quetiapine Fumarate (Quetiapine Fumarate), 1 TAB PO HS, (Reported) Miscellaneous Medications Alprazolam (Alprazolam), (Reported) Pramipexole Di-Hcl (Pramipexole Dihydrochloride), (Reported) albuterol inhaler (Pro-Air Inhaler), (Reported) Past Medical History Past Medical History: CVA/TIA/Stroke, High Cholesterol, Hypertension, COPD, Pulmonary Embolism, Diabetes, Leukemia, Anxiety, Depression Past Surgical History: orthopedic surgeries Other Past Surgical History: eye surgery Patient History: FH: heart disease FATHER FH: leukemia MOTHER FH: stroke FATHER FH: throat cancer Sister FH: type 2 diabetes FATHER Alcohol Use: None Drug Use: none Lives In: Homeless Review of Systems All Other Systems at this time: Reviewed and Negative ROS As stated above in the HPI, otherwise all systems are reviewed and negative. Physical Exam Vital Signs: RN Vital Signs have been reviewed: Yes, Temperature: 97.7, Source: Oral, Heart Rate: 92, Respiratory Rate: 16, BP: 131/62, Pulse Oximetry: 100, Weight: 62.200 Oxygen Flow Rate: 0 Pulse Oximetry Reflects: adequate oxygenation Physical Exam General: The patient is well developed, well nourished, nontoxic appearing and is in no acute distress. Skin: [place], warm and dry with no rashes. HEENT: Head was normocephalic and atraumatic. Eyes - pupils equal, round, reactive to light and accommodation. Extraocular movements were intact. Conjunctivae were nonicteric. Ears - bilateral tympanic membranes were normal. The mouth and oropharynx were clear with moist mucous membranes. There were no pharyngeal exudates or erythema. Neck: Supple and nontender. There was no jugular venous distention, lymphadenopathy, thyromegaly or masses. Chest: Clear to auscultation bilaterally without wheezes, rales or rhonchi. No accessory muscle use. No dullness to percussion. Heart: Rate regular and rhythmic. S1, S2. No murmurs. Palpation of the chest wall was normal. No rubs or thrills. Abdomen: Soft, nontender and nondistended. Positive bowel sounds. No guarding or rebound. No hepatosplenomegaly or palpable masses. Extremities: Restless and shaking legs. No cyanosis, clubbing or edema. The patient moves all extremities. Pulses were equal and symmetric. Neurologic: No pronator drift. Slurred speech. Cranial nerves II-XII were intact. Sensation was intact to light touch throughout. Motor strength was 5/5 in all four extremities. Deep tendon reflexes were intact in both upper and lower extremities. Psychologic: The patient was oriented to person, place and time. The patient demonstrated appropriate judgement and insight. Progress Progress Note 2330: The case was discussed with the hospitalist who was informed on the patients case and kindly agreed to admission. Results/Orders Reviewed/noted all lab results: Yes Results/Orders Orders - AUGUSTO DURHAM MD Electrocardiogram (04/18/25 22:08) Urinalysis, Cult If Indicated (04/18/25 22:08) Drug Screen, Urine (04/18/25 22:08) Chest,Single View (04/18/25 22:42) Ct Stroke Alert (04/18/25 22:08) * Vital Signs Routine* [id number] (04/18/25 22:08) * Npo Until Passed Bedside Swa (04/18/25 22:08) Page Hospitalist (04/18/25 23:17) Fill Out Med Reconciliation (04/18/25 23:17) Completed Orders - AUGUSTO DRUHAM MD Electrocardiogram (04/18/25 22:08) Cbc/Diff (04/18/25 22:08) BMP (04/18/25 22:08) Pt Inr (04/18/25 22:08) PTT (04/18/25 22:08) Type And Screen (04/18/25 22:08) Chest,Single View (04/18/25 22:42) Ct Stroke Alert (04/18/25 22:08) * Blood Glucose Assessment * ONCE (04/18/25 22:08) Nursing Swallow Screen (04/18/25 22:08) MG (04/18/25 22:09) Liver Panel (04/18/25 22:16) ESR (04/18/25 23:19) C-Reactive Protein (04/18/25 22:16) Medications Received in ER Medications (Trade) Dose Ordered Sig/Elida Route PRN Reason Start Time Stop Time Status Last Admin Dose Admin ([place] 10/325mg tab) 1 tab Q4H PRN PO SEVERE PAIN 7-10 04/19/25 00:15 04/19/25 04:19 1 TAB Sodium Chloride 1,000 ml @ 50 mls/hr Q20H IV 04/19/25 00:15 04/19/25 02:10 50 MLS/HR (K-DUR tablet) 20 meq Q4H PRN PO Potassium 3.1-3.4 04/19/25 00:15 04/22/25 00:14 04/19/25 04:19 20 MEQ Vital Signs 04/18/25 04/18/25 04/18/25 04/19/25 21:58 22:58 23:56 00:03 Temp 97.7 Pulse 92 88 82 Resp 16 16 16 16 B/P (MAP) 131/62 141/70 (93) 121/100 (107) Pulse Ox 100 95 94 O2 Flow Rate 0 0 0 Laboratory Tests Test 04/18/25 22:16 04/18/25 23:41 White Blood Count 9.3 Red Blood Count 3.85 L Hemoglobin 7.7 L Hematocrit 25.2 L Mean Corpuscular Volume 65.5 L Mean Corpuscular Hemoglobin 20.0 L Mean Corpuscular Hemoglobin Concent 30.5 L Red Cell Distribution Width 23.9 H Platelet Count 282 Mean Platelet Volume 8.6 Neutrophils (%) (Auto) 58.4 Lymphocytes (%) (Auto) 36.7 Monocytes (%) (Auto) 2.9 Eosinophils (%) (Auto) 1.4 Basophils (%) (Auto) 0.6 Neutrophils # (Auto) 5.5 Lymphocytes # (Auto) 3.4 Monocytes # (Auto) 0.3 Eosinophils # (Auto) 0.1 Basophils # (Auto) 0.1 CBC Comment Platelet Estimate Normal Red Blood Cell Morphology Perf Hypochromasia 2+ Basophilic Stippling Anisocytosis 2+ Microcytosis 2+ Macrocytosis Few Tear Drop Cells Few Elliptocytes Few Erythrocyte Sedimentation Rate 7 Prothrombin Time 10.8 INR International Normalized Ratio 1.1 Activated Partial Thromboplast Time 20 L Coagulation Comments Sodium Level 143 Potassium Level 3.7 Chloride Level 109 H Carbon Dioxide Level 25.1 Anion Gap 9 Blood Urea Nitrogen 28 H Creatinine 0.79 Estimated GFR/1.73 m2 71 BUN/Creatinine Ratio 35.4 H Glucose Level 123 H Calcium Level 8.6 Magnesium Level 2.0 Total Bilirubin 0.4 Direct Bilirubin 0.1 Aspartate Amino Transf (AST/SGOT) 14 Alanine Aminotransferase (ALT/SGPT) 21 Alkaline Phosphatase 102 C-Reactive Protein < 0.05 Total Protein 6.3 L Albumin 3.3 L Globulin 3.0 Albumin/Globulin Ratio 1.1 Chemistry Comments Glucometer 114 H Re-Evaluation Re-Evaluation : Re-Evaluation: Unchanged Progress Patient was seen and examined given reassurance. Patient complained of restless legs some vague complaints however the patient was slurring her speech she states that is been going on for a few days does not appear well. Stroke workup was then started. Laboratory work was obtained sed rate is normal at seven. Patient does have a leukemic process. Patient's CBC WBCs 9.3 hemoglobin hematocrit 7.7 and 25.2 with 282 platelets around the patient's baseline. Patient's chemistry shows slight dehydration with a BUN creatinine ratio of 35.4 otherwise normal LFTs C-reactive protein negative. CT scan was obtained and within normal limits did not receive a tele neurology consultation at this time may have a metabolic encephalopathy of sorts etiology would be unclear. U ltimately I did contact the hospitalist regarding of the patient's health. Etiology seems a bit vague and unclear but patient does not seem safe to be discharged home. Patient was then admitted for further workup and care. 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 EKG/XRAY/CT/US/VASC/MRI EKG : Additional Comment [facility] Test Date: 2025-04-18 Test Time: 22:30:41 Pat Name: MÓNICA JETT Department: [facility]- Patient ID: [id number] Room: Gender: F Pipe Layer: : 1950 Requested By: AUGUSTO DURHAM Order Number: [id number] Reading MD: Dr. Augusto Durham Measurements Intervals [place] Rate: 92 P: 65 IN: 194 QRS: 65 QRSD: 74 T: 65 QT: 340 QTc: 421 Interpretive Statements Sinus rhythm Electronically Signed On 04-18-2025 23:33:[address] Augusto Durham Please click the below link to view image of tracing. EKG Date and Time:04/18/252229 Electronically Signed by: AUGUSTO DURHAM MD Date and Time: 04/18/25 2333 Chest X-Ray : Additional Comments CHEST RADIOGRAPH Indication: Stroke Alert Technique: Single frontal view of the chest was obtained COMPARISON: DI CHEST,SINGLE VIEW on DOS: 01/22/25 FINDINGS: Lines and Tubes: None Lungs: Clear. Pleura: No effusion. No pneumothorax. Cardiomediastinal contours: Heart size is normal. Large hiatal hernia again noted. Bones: Old/healed right-sided rib fractures again noted. IMPRESSION: No acute disease. No significant change compared to the prior chest x-ray from December 2024. Electronically Signed by:ROLY WYATT MD Date & Time: 04/18/25 225 [address] : Impression CT CT STROKE ALERT INDICATION: slurred speach 2 days COMPARISON: None TECHNIQUE: CT of the head without intravenous contrast. RADIATION DOSE: CTDIvol: mGy, DLP: mGy*cm FINDINGS: There is no evidence of intracranial hemorrhage, infarct, extra-axial collection, mass effect, midline shift, herniation or hydrocephalus. Mild ventricular and sulcal enlargement related mild cerebral volume loss. The davis-white differentiation is preserved. Visualized paranasal sinuses and mastoid air cells are clear. Soft tissues and osseous structures are unremarkable. IMPRESSION: No acute intracranial abnormality identified. Electronically Signed by:ROLY WYATT MD Date & Time: 04/18/252235 Medical Decision Making Additional info obtained from: old records General Diff Dx:Considerations: Include: Neurovascular injury, Other Departure Time of Disposition: 23:50 Disposition: ADMITTED INPATIENT Admitted to Inpatient Unit: yes, to hospitalist Admission Level of Care: PCU with Tele Impression: Primary Impression: Slurred speech Additional Impressions: Chronic anemia Restless leg Condition: Guarded Education Educated: Patient Educated regarding: diagnosis, need for follow up, other Signature Scribe Signature: Scribed for Augusto Durham MD by Evelin Smith . 04/18/25 22:18 Attestation: The note accurately reflects work and decisions made by me.Augusto Durham MD 04/18/25 22:10 AUGUSTO DURHAM MD Apr 18, 2025 22:10 EVELIN KHAN Apr 18, 2025 22:18
--- NOTE | 2025-04-18 22:33 | ELECTROCARDIOGRAPH REPORT ---
[facility] Test Date: 2025-04-18 Test Time: 22:30:41 Pat Name: MÓNICA JETT Department: [facility] Patient ID: [facility]-[id number] Room: Gender: F Cook Pressure: : 1950 Requested By: JASWINDER DURHAM Order Number: [id number] Reading MD: Dr. Jsawinder Durham Measurements Intervals [place] Rate: 92 P: 65 MS: 194 QRS: 65 QRSD: 74 T: 65 QT: 340 QTc: 421 Interpretive Statements Sinus rhythm Electronically Signed On 04-18-2025 23:33:[address] Jaswinder Durham Please click the below link to view image of tracing.
[2025-04-18 22:34] LABS: CREATININE 0.79 MG/DL (0.40-0.90); TOTAL CARBON DIOXIDE 25.1 MMOL/L (24-32); eCRCL 51 ML/MIN; eGFR 71 ML/MIN
[2025-04-18 22:37] LABS: MEAN PLATELET VOLUME 8.6 FL (7.4-10.4)
--- NOTE | 2025-04-18 22:38 | RADIOLOGY REPORT ---
CT CT STROKE ALERT INDICATION: slurred speach 2 days COMPARISON: None TECHNIQUE: CT of the head without intravenous contrast. RADIATION DOSE: CTDIvol: mGy, DLP: mGy*cm FINDINGS: There is no evidence of intracranial hemorrhage, infarct, extra-axial collection, mass effect, midli ne shift, herniation or hydrocephalus. Mild ventricular and sulcal enlargement related mild cerebral volume loss. The davis-white differentiation is preserved. Visualized paranasal sinuses and mastoid ai r cells are clear. Soft tissues and osseous structures are unremarkable. IMPRESSION: No acute intracranial abnormality identified.
[2025-04-18 22:45] LABS: INR 1.1 INR
[2025-04-18 22:46] LABS: APTT 20 SECONDS (22-32)
[2025-04-18 22:50] LABS: PLATELET ESTIMATE NORMAL; RED CELL DISTRIBUTION WIDTH 23.9 % (11.5-14.5)
[2025-04-18 22:51] LABS: ELLIPTOCYTES FEW
--- NOTE | 2025-04-18 22:53 | RADIOLOGY REPORT ---
CHEST RADIOGRAPH Indication: Stroke Alert Technique: Single frontal view of the chest was obtained COMPARISON: DI CHEST,SINGLE VIEW on DOS: 01/22/25 FINDINGS: Lines and Tubes: None Lungs: Clear. Pleura: No effusion. No pneumothorax. Cardiomediastinal contours: Heart size is normal. Large hiatal hernia again noted. Bones: Old/healed right-sided rib fractures again noted. IMPRESSION: No acute disease. No significant change compared to the prior chest x-ray from December 2024.
[2025-04-19] VITALS (12 sets, daily range): BP systolic 103–166; BP diastolic 38–74; PULSE 61–85; RESP 1–20; TEMP 97.2–98.1; O2SAT 94–98
[2025-04-19] MEDS ORDERED: potassium Cl 20 mEq SR tablet PO PRN (00:15)
[2025-04-19] MEDS ORDERED: HYDROcodone/acetaminophen 5mg/325mg tablet PO PRN (00:15)
[2025-04-19] MEDS ORDERED: magnesium sulf-water 4G/100mL 100 ML IV PRN (00:15)
[2025-04-19] MEDS ORDERED: magnesium sulf-water 2g/50mL 50 ML IV PRN (00:15)
[2025-04-19] MEDS ORDERED: magnesium Cl slow-release 64mg tablet PO PRN (00:15)
[2025-04-19] MEDS ORDERED: potassium Cl 40MEQ/1/2NS 520ml 520 ML IV PRN (00:15)
[2025-04-19] MEDS ORDERED: mag hydrox/Alum hydrox/simeth 30ml oral suspension PO PRN (00:15)
[2025-04-19] MEDS ORDERED: ondansetron/PF 4mg/2ml inj IV PRN (00:15)
[2025-04-19] MEDS: normal saline 1000ml 1,000 ML IV SCH (02:10)
[2025-04-19] MEDS: aspirin 325mg tablet, delayed-release (Ecotrin) PO ONE (02:10)
--- NOTE | 2025-04-19 02:16 | HISTORY AND PHYSICAL-Residence ---
History & Physical Providers to CC Resident Creating Document: MARISA JIMÉNEZ RES ~ History of Present Illness Primary Medical Doctor: Kevin Reason for Admit\Complaint: Slurring of speech, rule out CVA/TIA History of Present Illness 75-year-old female history of CLL, hypertension, TIA, hyperlipidemia presented to the ED with chief complaints of bilateral lower extremity pain and slurring of speech. She has chronic restless leg and takes medications at home. She took two of those medications which did not help today. She feels like she is slurring her speech to herself tonight. States she had a minor stroke at the age of 46 with weakness in the hence since slurring of speech which was way worse than what she is experiencing today. She has a history of TIA but not on aspirin due to easy bruising and bleeding. She does not drink alcohol. Smokes half a pack of cigarettes a day. History of chronic anemia secondary to CLL, no hematemesis melena or hematochezia. Discussed advanced care directives and she wishes to be Full code. Allergies: Coded Allergies: No Known Allergies (Unverified , 04/18/25) Home Medications Home Medications Active Ferrous Sulfate 325 Mg (65 Mg Iron) Tablet 1 Tab PO MWF 30 Days Take 1 tablet by mouth three times weekly on an empty stomach Pantoprazole Sodium 40 Mg Tablet.dr 40 Mg PO DAILY 30 Days Advair 250-50 Diskus (Salmeterol Xinafoate/Fluticasone) 1 Each Disk.w.dev 1 Puffs INH Q12H 30 Days Eliquis (Apixaban) 5 Mg Tablet 1 Tab PO Q12H 30 Days Reported Pro-Air Inhaler (Albuterol) 8.5 Gm Inhaler Alprazolam 1 Mg Tablet Budesonide-Formoterol 80-4.5 (Budesonide/Formoterol Fumarate) 80 Mcg-4.5 Mcg/Actuation Hfa.aer.ad 2 Puffs PO BID Quetiapine Fumarate 100 Mg Tablet 1 Tab PO HS Pramipexole Dihydrochloride (Pramipexole Di-Hcl) 0.25 Mg Tablet Past Medical History Past Medical History CLL, hypertension, stroke, gastric ulcer and hyperlipidemia Past Surgical History Surgical History Comment Foot surgery x3 Unspecified eye surgery Family History Family History: FH: heart disease FATHER FH: leukemia MOTHER FH: stroke FATHER FH: throat cancer Sister FH: type 2 diabetes FATHER Past Social History Smoking: Cigarettes Alcohol Use: None Drug Use: None Lives In: Homeless ROS All Other Systems: Reviewed and Negative ROS Reviewed in full. All negative except for pertinent positive HPI. Exam Vitals: Vital Signs Date Time Temp Pulse Resp B/P (MAP) Pulse Ox O2 Delivery O2 Flow Rate FiO2 04/19/25 00:03 82 16 121/100 (107) 94 0 04/18/25 21:58 97.7 General: General: Awake and Alert, no acute distress. HEENT: Conjunctiva pink, Sclera clear, Mucus Membranes moist. Neck: Supple without masses and tenderness. Resp: Unlabored. Bilateral coarse breath sounds. Heart: Regular rhythm, normal S1 and S2, no rub, murmur or gallop. Abdomen: Soft and non tender no organomegaly. Normal bowel sounds x4 quadrant normoactive. No guarding or rigidity. Extremities: Normal ROM, no swelling, nontender. No cyanosis,clubbing or edema. TOOL AND DIE REPAIR: No gross motor or sensory abnormalities. Skin: Warm and Dry. Neuro exam: Mental status: Awake and alert x4 Cranial nerve ii-xii no gross sensory or motor abnormalities Strength 5/5 in both upper and lower extremity No sensory deficits noted Diagnostic Data Last Recorded Lab Results: 04/18/25221504/18/252215 Diagnostic Data: Laboratory Tests Test 04/18/25 22:16 Prothrombin Time 10.8 SECONDS (9.0-12.0) INR International Normalized Ratio 1.1 INR Activated Partial Thromboplast Time 20 SECONDS (22-32) L Coagulation Comments Advance Care Planning Advanced Care plannin - 30 Minutes Additional Plan 75-year-old female history of CLL, hypertension, TIA, hyperlipidemia presented to the ED with chief complaints of bilateral lower extremity pain and slurring of speech. Slurring of speech Rule out acute CVA History of TIA CT head: No acute intracranial abnormalities noted. Follow up with MRI head, echo, vascular ultrasound of carotids Ordered A1c, TSH, lipid panel Continue aspirin and statin Chronic microcytic hypochromic anemia History of CLL History of iron-deficiency anemia Hemoglobin hematocrit 7.7 and 25.2 Monitor H&H and transfuse for hemoglobin less than seven Hypertension Hyperlipidemia Restless leg syndrome, started pramipexole Tobacco use, quit in patch and breathing treatments p.r.n. Awaiting med rec Code Status: Full code DVT prophylaxis Lovenox Disposition: Continue medical management Marisa Jiménez MD. IM Resident PGY-3 Discussed case with resident and agree with the assessment and plan above with no changes. Ce Kam MD Critical Care Date of Service: Apr 19, 2025 Billing Provider: CE KAM MD, ELIZABETH, RES Apr 19, 2025 02:16 CE KAM MD Apr 20, 2025 10:11
[2025-04-19] MEDS: nicotine 14mg patch - 24hr TD SCH (02:20)
[2025-04-19] MEDS ORDERED: ipratropium/albuterol 3ml nebule NEB PRN (02:20)
[2025-04-19] MEDS: HYDROcodone/acetaminophen 10/325mg tab PO PRN (04:19)
[2025-04-19] MEDS: potassium Cl 20 mEq SR tablet PO PRN (04:19)
[2025-04-19] MEDS: aspirin 81mg, enteric-coated 1 TAB TABLET.DR PO SCH (07:55)
[2025-04-19] MEDS: enoxaparin 40mg/0.4ml syringe SUBCUT SCH (07:56)
[2025-04-19] MEDS: K and/or MAG REPLACEMENT MC SCH (08:00)
[2025-04-19 08:14] LABS: MEAN PLATELET VOLUME 8.7 FL (7.4-10.4); RED CELL DISTRIBUTION WIDTH 23.8 % (11.5-14.5)
[2025-04-19 08:16] LABS: CHOL/HDL RATIO 2.2 (0.00-4.99); LDL CHOLESTEROL 62 MG/DL (50-100)
[2025-04-19 08:57] LABS: ABSOLUTE RETICS # 90100 /CUMM (23000-93000)
[2025-04-19 10:16] LABS: PLATELET ESTIMATE NORMAL
--- NOTE | 2025-04-19 12:27 | VASCULAR REPORT ---
Indication: Transient ischemic attack Technique: Real-time ultrasound images of the neck vessels with davis-scale, color and wave Doppler we re obtained. Comparison: None Findings: The following peak systolic velocities were recorded in cm/sec: Right internal carotid: 125 in the mid ICA Right common carotid: 87 Right external carotid: 119 Right internal/common carotid ratio: 1.2 Left internal carotid: 95 Left common carotid: 95 Left external carotid: 123 Left internal/common carotid ratio: 1.3 Right vertebral artery: Patent with normal antegrade direction of flow. Left vertebral artery: Patent with normal antegrade direction of flow. Impression: Approximately 50-69% stenosis of the right internal carotid artery by velocity criteria. Recommend CT angiogram of the neck to evaluate
[2025-04-19] MEDS: heparin sodium, porcine/PF 100unit/ml 5ML syringe IV ONE (14:30)
[2025-04-19 15:21] LABS: OCCULT BLOOD STOOL NEGATIVE (Neg)
[2025-04-19] MEDS ORDERED: iohexol 300mg/ml 100ml inj. ONE (16:23)
--- NOTE | 2025-04-19 17:38 | RADIOLOGY REPORT ---
PROCEDURE: MR MRI HEAD INDICATION: SLURRED SPEECH EXAM DATE: 04/19/2025 04:45 PM COMPARISON: None TECHNIQUE: MRI of the brain without intravenous contrast. FINDINGS: Subtle high diffusion signal in the right feldman radiata without associated low ADC signal and with c orresponding FLAIR signal consistent with T2 shine through. No acute infarct identified. There is no evidence of acute intracranial hemorrhage, extra-axial collection, mass effect, midline s hift, herniation or hydrocephalus. Mild cerebral atrophy. Jilk-id-cvvtqvyd changes of chronic microvascular ischemic disease. Old lacunar infarct in the left p ons. There are no signal abnormalities on the susceptibility weighted sequences. The major vascular flow voids are present. Left maxillary sinus mucous retention cysts. The surrounding soft tissues and osseous structures are unremarkable. IMPRESSION: 1. No evidence of acute infarction, intracranial hemorrhage, mass effect or hydrocephalus. Mild cereb ral atrophy. Zvey-le-lbnywouu changes of chronic microvascular ischemic disease. Old lacunar infarct in the left unruly. Left maxillary sinus disease. HS:Y
--- NOTE | 2025-04-19 17:57 | RADIOLOGY REPORT ---
EXAM: CT CTA NECK/HEAD CLINICAL HISTORY: carotid stenosis TECHNIQUE: CT angiogram of the head and neck was performed without and with intravenous contrast. 100 ml of 50 was administered intravenously. 3D MIP reconstructed images were created and archived on [employer] PACS system. This exam was performed according to our departmental dose optimization program. Up-to -date CT equipment and radiation dose reduction techniques are utilized as appropriate. 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 There is mild to moderate calcified plaque in the bilateral cavernous a nd supraclinoid ICAs. The distal internal carotid, vertebral, and basilar arteries are patent without focal narrowing or occlusion. The anterior, middle, and posterior cerebral arteries are patent witho ut focal narrowing. No aneurysm or arteriovenous malformation is identified. CTA neck: Kwtj-qq-jiauitxj calcified atherosclerotic plaque in the aortic arch. There is arch origin of the lef t vertebral artery. This is a normal variant. The aortic arch vessel origins are widely patent. Mild calcified atherosclerotic plaque in the bilateral carotid bifurcations. The common carotid and cervic al portions of the internal carotid and vertebral arteries are patent without focal narrowing accordi ng to NASCET criteria. No aneurysm, AVM, or dissection is identified. The cervical soft tissues are unremarkable. Mild paranasal sinus mucosal thickening. There are mucous retention cysts or polyps in the bilateral maxillary sinuses. There are small bilateral mastoid air cell effusions. There is centrilobular emphysema. There is a 1.3 cm nodule in the medial left upper l obe on series 2, image 20. Multilevel cervical spondylosis. There are dental caries in all of the max illary and mandibular dentition. IMPRESSION: CTA head: Patent intracranial arteries without large vessel occlusion, aneurysm, AVM, or high-grade stenosis. 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 Mwjf-ro-cijtglov calcified plaque in the bilateral cavernous and supraclinoid ICAs. CTA neck: Patent arteries in the neck without occlusion, significant stenosis, or dissection. Centrilobular emphysema. There is a 1.3 cm nodule in the medial left upper lobe, indeterminate. Options for follow-up include CT chest within 3 months, PET-CT, or biopsy. Dental caries in all of the maxillary and mandibular dentition.
--- NOTE | 2025-04-19 18:26 | RADIOLOGY REPORT ---
Procedure: NM NM GI BLOOD LOSS SCAN Exam Date: 04/19/2025 02:40 PM Clinical History: GI BEED, anemia, elevated retic ct Comparison Study: None Nuclear Medicine Gastrointestinal Bleeding Study. Technique: An aliquot of the patient's blood was withdrawn and the red blood cells were labeled with 22.5 mCi of [id number]. The labeled red blood cells were then reinjected. Sequential planar images of the abdomen w ere obtained at 1 minute intervals for 90 minutes. Findings: There is expected anatomic activity seen in the heart and great vessels of the abdomen. No abnormal focus of activity is seen to suggest a gastrointestinal bleed. Impression: No evidence of gastrointestinal bleeding during the time of this study.
--- NOTE | 2025-04-19 19:34 | BLUE SKY NEURO CONSULT REPORT ---
[place] [facility] Procedure Note [place] [facility] Procedure Note Consult [place] [facility] Note # Demographics Consult Type: General Neurology Patient Location: Inpatient First Name: shaq Last Name: brent Date of : 1950 Age: 75 Gender: Female Facility: [facility] Time of Initial Page (): 04/19/2025 19:14 Time of Return Call (): 04/19/2025 19:14 # HPI Chief Complaint: - speech changes History: 75 yo F p/w slurred speech and worsening restless leg syndrome 2 days ago. Speech symptoms resolved after a day. Hx of TIA but not on any antiplatelet therapy. # Scores Level of Consciousness 1a: [0] = Alert; keenly responsive LOC Questions 1b: [0] = Answers both questions correctly LOC Commands 1c: [0] = Performs both tasks correctly Best Gaze 2: [0] = Normal Visual 3: [0] = No visual loss Facial Palsy 4: [0] = Normal symmetrical movements Motor Arm Left 5a: [0] = No drift Motor Arm Right 5b: [0] = No drift Motor Leg Left 6a: [0] = No drift Motor Leg Right 6b: [0] = No drift Limb Ataxia 7: [0] = Absent Sensory 8: [0] = Normal Best Language 9: [0] = No aphasia Dysarthria 10: [0] = Normal Extinction and Inattention 11: [0] = No abnormality NIHSS Total: 0 # ROS Additional: - complete review of systems otherwise negative # PMH-FH-SH Past Medical History: - TIA - hyperlipidemia - hypertension # Data CTA Head: no large vessel occlusion CTA Neck: patent vessels MRI: no acute ischemia # Assessment Impression: - Transient Ischemic Attack # Plan Labs: - hemoglobin A1c - lipid panel Medication: - aspirin 81 mg daily Other: - If patient has any neurological deterioration please call me back immediately - LDL < 70 - neurology referral as outpatient # Logistics Attestation of consult completion: The patient is located at: [facility]. Facility staff participated in the visit. I performed this telemedicine visit from my offsite office utilizing interactive 2 way audio and visual telecommunication technology. Total time spent in telemedicine encounter: I spent 18 minutes reviewing clinical data and/or imaging, obtaining history, examining the patient, communicating with the onsite care team, and in preparation of this report. # Demographics First Name: shaq Last Name: brent Facility: [facility] Electronically signed at 04/19/2025 19:33 ([place] Time) by Landen Sweet MD Neuro Consult Order placed for: Yes LANDEN SWEET MD Apr 19, 2025 19:34
[2025-04-19] MEDS: docusate sod 100mg capsule PO SCH (20:00)
[2025-04-19 20:51] LABS: MEAN PLATELET VOLUME 7.7 FL (7.4-10.4); RED CELL DISTRIBUTION WIDTH 26.6 % (11.5-14.5)
[2025-04-19 21:16] LABS: EOSINOPHILS % (MANUAL) 4.0 % (0-6); LYMPHOCYTES % (MANUAL) 22.0 % (21-51); MONOCYTES % (MANUAL) 3.0 % (2-12); NEUTROPHILS % (MANUAL) 71.0 % (42-75); PLATELET ESTIMATE NORMAL
[2025-04-19 22:21] LABS: LEUKOCYTE ESTERASE ,URINE SMALL (Neg); NITRITES, URINE POSITIVE (Neg); OCCULT BLOOD,URINE NEGATIVE (Neg)
[2025-04-19 22:23] LABS: UA COLLECTION TYPE NON-SPECIFIED
[2025-04-19 22:39] LABS: SQUAMOUS EPITHELIAL CELL,UR FEW /LPF (FEW)
[2025-04-19 22:43] LABS: URINE AMPHETAMINE SCREEN NEGATIVE (Neg); URINE BARBITUATE SCREEN NEGATIVE (Neg); URINE BENZODIAZEPINES SCREEN NEGATIVE (Neg); URINE CANNABINOID SCREEN NEGATIVE (Neg); URINE COCAINE SCREEN NEGATIVE (Neg); URINE METHADONE SCREEN NEGATIVE (Neg); URINE OPIATE SCREEN POSITIVE (Neg); URINE PHENCYCLIDINE SCREEN NEGATIVE (Neg)
[2025-04-20] VITALS (11 sets, daily range): BP systolic 90–147; BP diastolic 45–66; PULSE 62–81; RESP 16–18; TEMP 97.7–98.1; O2SAT 93–100
[2025-04-20 06:03] LABS: MEAN PLATELET VOLUME 8.6 FL (7.4-10.4); RED CELL DISTRIBUTION WIDTH 26.6 % (11.5-14.5)
[2025-04-20 06:22] LABS: CHOL/HDL RATIO 1.9 (0.00-4.99); CREATININE 0.62 MG/DL (0.40-0.90); LACTATE DEHYDROGENASE 130 U/L (81-234); LDL CHOLESTEROL 50 MG/DL (50-100); PHOSPHORUS 3.7 MG/DL (2.3-4.5); TOTAL CARBON DIOXIDE 25.2 MMOL/L (24-32); eCRCL 65 ML/MIN; eGFR > 90 ML/MIN
[2025-04-20] MEDS: CefTRIAXone/D5W-Rocephin 1gm 50 ML IV ONE (08:21)
--- NOTE | 2025-04-20 12:13 | CARDIOLOGY REPORT ---
APPROVED REPORT EXAM: Comprehensive 2D, Doppler, and color-flow Echocardiogram with saline Patient Location: [address] Blood Pressure: 132/46 mmHg Heart Rate: 69 bpm Indications CVA/TIA HX of CVA/TIA Hypertensin COPD Diabetes NO CASINO FLOOR RUNNER NO Previous ECHO 2D Dimensions LA Diam2.7 cm IVSd 0.7 (0.7-1.1cm) LVDd 3.6 cm PWd 0.9 (0.7-1.1cm) IVSs 1.1 (0.8-1.2cm) LVDs 1.9 (2.5-4.0cm) PWs 1.6 (0.8-1.2cm) LVOT Diameter 2.01 (1.8-2.4cm) LVEF(%) 79.8 (>50%) Ao Asc Diam.2.91 cm IVC 14.61 mmFS (%) 47.5 % SV 42.9 ml CO 2.8 L/min M-Mode Dimensions Left Atrium(MM) 3.16 (2.5-4.0cm) Aortic Root 3.23 (2.2-3.7cm) Aortic Cusp Exc 2.06 (1.5-2.0cm) MV EPSS 0.3 (<0.5cm) Aortic Valve AoV Peak Kaden. 194.9 cm/s AoV VTI 35.8 cm AO Peak GR. 15.2 mmHg AO Mean GR. 6 mmHg LVOT VTI 25.23 cm LVOT Peak Kaden. 120.5 cm/s LAUREN(VTI)/BSA 2.23 cm2/m2 LAUREN (VTI) 2.23 cm2 Mitral Valve MV E Velocity 98.5 cm/s MV Peak Gr. 8 mmHg MV DECEL TIME 184 ms MV A Velocity 96.7 cm/s MV PHT 72 ms E/A Ratio 1.0 MVA (PHT) 3.06 cm2 MV OKnn787.7 cm/s TDI Lateral E' P. V9.30 cm/s E/Lateral E' 10.6 Tricuspid Valve TR P. Velocity 205 cm/s RAP ESTIMATE 10 mmHg TR Peak Gr. 17 mmHg RVSP 27 mmHg LEFT VENTRICLE Normal LV size and wall thickness. Overall systolic function is hyperdynamic. LVEF is 75-80%. RIGHT VENTRICLE Right ventricle is mildly dilated with adequate function. ATRIA The left atrium size is normal. Saline study was performed with 2 IV injections of 10 ccs of agitated normal saline at rest, with cough, and with valsalva. Negative saline study for right to left flow. AORTIC VALVE Trileaflet AV appears mildly sclerotic without stenosis. Trivial insufficiency. MITRAL VALVE Mild mitral annular calcification without stenosis. Trace regurgitation. TRICUSPID VALVE The tricuspid valve is normal in structure with trace regurgitation. PULMONIC VALVE The pulmonary valve is normal in structure with physiologic insufficiency. GREAT VESSELS The aortic root is normal in size. The ascending aorta is normal in size. The IVC is normal in size a nd collapses >50% with inspiration. PERICARDIUM Normal pericardium. No effusion. Other Information Study Quality: Adequate Conclusion Normal LV size and wall thickness. Overall systolic function is hyperdynamic. LVEF is 75-80%. Right ventricle is mildly dilated with adequate function. The left atrium size is normal. Saline study was performed with 2 IV injections of 10 ccs of agitate d normal saline at rest, with cough, and with valsalva. Negative saline study for right to left flow . Trileaflet AV appears mildly sclerotic without stenosis. Trivial insufficiency. Mild mitral annular calcification without stenosis. Trace regurgitation. The tricuspid valve is normal in structure with trace regurgitation. Normal pericardium. No effusion.
--- NOTE | 2025-04-20 13:42 | PROGRESS NOTE ---
Daily Progress Note Providers to CC ~ Antibiotic Timeout Antibiotic Ordered?: Yes Subjective No acute events overnight. Patient examined at bedside. No new complaints. Patient denies chest pain, sob, palpitations, abdominal pain, back pain, n/v/d, melena, hematochezia, hematemesis. s/p 1 unit PRBC transfusion, hemolytic panel negative, no melena/hematemesis/hematochezia, negative guaiac, negative nuclear GIB scan. Teleneurologist consulted, TIA, continued on aspirin and statin. Started Rocephin for UTI. Objective Vital Signs Date Time Temp Pulse Resp B/P (MAP) Pulse Ox O2 Delivery O2 Flow Rate FiO2 04/20/25 08:00 Room Air 04/20/25 06:30 56 04/20/25 02:05 16 04/20/25 02:00 97.7 147/66 (93) 95 04/19/25 10:15 0 21 Result Diagram: 04/20/250 04/20/25 044 Physical Exam General: A&Ox 3, NAD HEENT: Normocephalic, PERRLA Neck: Supple, trachea midline, no JVD Chest: Clear to auscultation bilaterally Cardiovascular: RRR, S1&S2 GI: Soft and nontender Extremities: No cyanosis/clubbing/or edema BOOKBINDER APPRENTICE: CN II-XII intact, no focal deficits Musculoskeletal: No paraspinal muscle tenderness, no muscle spasm Skin: Warm and intact Coagulation Studies Laboratory Tests Test 04/18/25 22:16 Prothrombin Time 10.8 SECONDS (9.0-12.0) INR International Normalized Ratio 1.1 INR Activated Partial Thromboplast Time 20 SECONDS (22-32) L Coagulation Comments Problem\Assessment\Plan 75yo female came in with acute onset slurred speech that has resolved within 24 hours Assessment & Plan TIA- POA Hx TIA CVA- ruled out UTI- POA Acute metabolic encephalopathy 2/2 above- POA Normocytic anemia Hx CLL (heme/oncologist Dr. Blake)- wbc wnl, no thrombocytopenia, wnl lymphocytes MADYSON -teleneurologist consulted -continue aspirin, statin, Rocephin -s/p 1 unit PRBC transfusion, hemolytic panel negative, no melena/hematemesis/hematochezia, negative guaiac, negative nuclear GIB scan DVT/VTE Prophylaxis: SCDs Code Status: Full Code Date of Service: Apr 20, 2025 Billing Provider: RJ SALAS Common Visit Codes: 70564-SUTXUDXDER INP/OBS CARE(HIGH) RJ SALAS Apr 20, 2025 13:42
[2025-04-20] MEDS: iron dextran complex inj. 25 MG in normal saline 100ml IV soln 100 ML IV ONE (14:27)
[2025-04-20] MEDS: iron dextran complex inj. 75 MG in normal saline 100ml IV soln 100 ML IV ONE (19:16)
[2025-04-21 02:00] VITALS: BP 153/61; PULSE 71; RESP 17; TEMP 97.3; O2SAT 93
[2025-04-21 05:00] VITALS: BP 140/52; PULSE 60; RESP 18; TEMP 97.6; O2SAT 92
[2025-04-21 06:23] LABS: MEAN PLATELET VOLUME 8.6 FL (7.4-10.4); RED CELL DISTRIBUTION WIDTH 26.2 % (11.5-14.5)
[2025-04-21] MEDS: CefTRIAXone 2gm/D5W 50ml BAG 50 ML IV SCH (07:14)
[2025-04-21 07:15] LABS: CREATININE 0.64 MG/DL (0.40-0.90); PHOSPHORUS 4.2 MG/DL (2.3-4.5); TOTAL CARBON DIOXIDE 22.8 MMOL/L (24-32); eCRCL 63 ML/MIN; eGFR 90 ML/MIN
[2025-04-21] MEDS ORDERED: ASPI-1071 PO (07:36)
[2025-04-21] MEDS ORDERED: LOSA25TA41 PO (07:36)
[2025-04-21] MEDS ORDERED: CEFD300C3 PO (07:36)
[2025-04-21] MEDS ORDERED: ATOR40TA PO (07:36)
[2025-04-21 08:45] VITALS: PULSE 76; RESP 16; O2SAT 94
[2025-04-21 09:12] VITALS: BP_SYST 14; PULSE 66
[2025-04-21] MEDS: iron dextran complex inj. 100 MG in normal saline 100ml IV soln 100 ML IV SCH (09:26)
--- NOTE | 2025-04-21 11:13 | DISCHARGE SUMMARY ---
Discharge Summary Providers to CC ~ Discharge Summary Admission Diagnosis: TIA, UTI, metabolic encephalopathy Hospital Course DATE OF ADMISSION: DATE OF DISCHARGE: Discharge Diagnosis\\Comment: TIA- POA Hx TIA CVA- ruled out UTI- POA Acute metabolic encephalopathy 2/2 above- POA Microcytic anemia Hx CLL (heme/oncologist Dr. Blake)- wbc wnl, no thrombocytopenia, wnl lymphocytes MADYSON COPD, not in acute exacerbation Emphysema Operations\\Procedures: None Consultants: Teleneurologist Tesha Hollingsworth Complications: None Condition on DC: Stable New Medications: Atorvastatin Calcium* (Lipitor*) 40 Mg Tablet 1 TAB PO HS for 90 Days, #90 TAB Cefdinir (Cefdinir) 300 Mg Capsule 1 CAP PO Q12H for 7 Days, #14 CAP 0 Refills Aspirin (Ecotrin*) 81 Mg Tablet.dr 1 TAB PO DAILY for 90 Days, #90 TAB.SR Losartan Potassium (Losartan Potassium) 25 Mg Tablet 25 MG PO DAILY for 90 Days, #90 TAB Continued Medications: albuterol inhaler (Pro-Air Inhaler) 8.5 Gm Inhaler Alprazolam (Alprazolam) 1 Mg Tablet Budesonide/Formoterol Fumarate (Budesonide-Formoterol 80-4.5) 80 Mcg-4.5 Mcg/A ctuation Hfa.aer.ad 2 PUFFS PO BID Ferrous Sulfate (Ferrous Sulfate) 325 Mg (65 Mg Iron) Tablet 1 TAB PO MWF for 30 Days, #30 TAB 0 Refills Take 1 tablet by mouth three times weekly on an empty stomach Pantoprazole Sodium (Pantoprazole Sodium) 40 Mg Tablet.dr 40 MG PO DAILY for 30 Days, #30 TAB.SR Pramipexole Di-Hcl (Pramipexole Dihydrochloride) 0.25 Mg Tablet Quetiapine Fumarate (Quetiapine Fumarate) 100 Mg Tablet 1 TAB PO HS Discontinued Medications: Apixaban (Eliquis) 5 Mg Tablet 1 TAB PO Q12H for 30 Days, #60 TAB Fluticasone/Salmeterol (Advair 250-50 Diskus) 1 Each Disk.w.dev 1 PUFFS INH Q12H for 30 Days, #1 INHALER 0 Refills Discharge Summary: History of Present Illness From H&P: "75-year-old female history of CLL, hypertension, TIA, hyperlipidemia presented to the ED with chief complaints of bilateral lower extremity pain and slurring of speech. She has chronic restless leg and takes medications at home. She took two of those medications which did not help today. She feels like she is slurring her speech to herself tonight. States she had a minor stroke at the age of 46 with weakness in the hence since slurring of speech which was way worse than what she is experiencing today. She has a history of TIA but not on aspirin due to easy bruising and bleeding. She does not drink alcohol. Smokes half a pack of cigarettes a day. History of chronic anemia secondary to CLL, no hematemesis melena or hematochezia." Hospital Course Diagnostic findings were notable for microcytic anemia, urinalysis positive for urinary tract infection. Pertinent negative findings were negative head CT, negative CTA head/neck for occlusion, stenosis, dissection, MRI head negative for acute abnormalities. Case was consulted with teleneurologist Dr. Fisher with diagnosis of TIA and recommendation aspirin and statin. Patient's initially reported symptoms of slurred speech have resolved within 24 hours of onset of symptoms. Patient was treated with aspirin, statin, empirical antibiotics, 2 units of PRBC transfusion, iron infusion. Patient denies history of atrial fibrillation. Telemetry remained sinus in 60s. Patient did not experience further complications throughout the entire hospital stay and made a good recovery. Patient was seen and examined on the day of discharge. On day of discharge, vss and labs unremarkable. Urine culture resulted positive for E coli. All labs, diagnostic workups, discharge plan discussed with patient in details during visit before discharge. All questions and concerns answered to the best of my professional knowledge. Patient is to be discharged to home to self and to follow up with the PCP and her hematology/oncologist Dr. Blake within 2 weeks. Physical Exam General: A&Ox 3, NAD HEENT: Normocephalic, PERRLA Neck: Supple, trachea midline, no JVD Chest: Clear to auscultation bilaterally Cardiovascular: RRR, S1&S2 GI: Soft and nontender Extremities: No cyanosis/clubbing/or edema AGENCY CASHIER: CN II-XII intact, no focal deficits Musculoskeletal: No paraspinal muscle tenderness, no muscle spasm Skin: Warm and intact *Problems/Diagnosis: (1) Low hemoglobin Status: Acute (2) History of chronic lymphocytic leukemia Status: Chronic (3) Chronic anemia Status: Chronic Total Time Spent on D/C: > 30 Minutes Date of Service: Apr 21, 2025 Billing Provider: RJ SALAS Common Visit Codes: 77143-FUA/OBS DISCH DAY >30min RJ SALAS Apr 21, 2025 11:12
== END 2025-04-21 10:46 | disposition home or self-care (01) | DRG 69 ==
LOC: ER 21:56 → ED HOLD 04-19 00:24 → ORTHO 4S 04-19 03:30
PROVIDERS: ADMIT Internal Medicine Pulmonary Disease; ATTEND Nurse Practitioner Family
PROC: CD171ZZ Planar Nuclear Medicine Imaging of Gastrointestinal Tract using Technetium 99m (Tc-99m) (ICD-10-PCS; principal; 2025-04-19)
PROC: 30233N1 Transfusion of Nonautologous Red Blood Cells into Peripheral Vein, Percutaneous Approach (ICD-10-PCS; 2025-04-19)
PROC: B3251ZZ Computerized Tomography (CT Scan) of Bilateral Common Carotid Arteries using Low Osmolar Contrast (ICD-10-PCS; 2025-04-19)
PROC: B32G1ZZ Computerized Tomography (CT Scan) of Bilateral Vertebral Arteries using Low Osmolar Contrast (ICD-10-PCS; 2025-04-19)
PROC: B32R1ZZ Computerized Tomography (CT Scan) of Intracranial Arteries using Low Osmolar Contrast (ICD-10-PCS; 2025-04-19)
PROC: B3281ZZ Computerized Tomography (CT Scan) of Bilateral Internal Carotid Arteries using Low Osmolar Contrast (ICD-10-PCS; 2025-04-19)
DX: G45.9 Transient cerebral ischemic attack, unspecified (principal); G93.41 Metabolic encephalopathy; N39.0 Urinary tract infection, site not specified; E11.9 Type 2 diabetes mellitus without complications; D50.9 Iron deficiency anemia, unspecified; E78.00 Pure hypercholesterolemia, unspecified; F17.210 Nicotine dependence, cigarettes, uncomplicated; G25.81 Restless legs syndrome; I10 Essential (primary) hypertension; F32.A Depression, unspecified; F41.9 Anxiety disorder, unspecified; J43.9 Emphysema, unspecified; M79.604 Pain in right leg; M79.605 Pain in left leg; Z79.899 Other long term (current) drug therapy; Z79.01 Long term (current) use of anticoagulants; Z79.51 Long term (current) use of inhaled steroids; Z79.82 Long term (current) use of aspirin; Z85.6 Personal history of leukemia; Z86.711 Personal history of pulmonary embolism
CPT/HCPCS: 36415; 36430; 70450; 70496; 70498; 70551; 71045; 78278; 80048; 80061; 80076; 80305; 81001; 82272; 82948; 83010; 83036; 83615; 83735; 84100; 84132; 84439; 84443; 85007; 85008; 85025; 85027; 85045; 85610; 85651; 85730; 86140; 86885; 86900; 86901; 86920; 86945; 87077; 87081; 87088; 87186; 92508; 92616; 93005; 93306; 93880; 94760; 97161; 97530; 99285; A9560; G0378; J0696; J1650; J1750; J7030; J7040; P9016; Q9967

== ENCOUNTER 2025-05-02 14:57 | Emergency (ER) | payer BC ==
[~2025-05-02] VITALS: Ht 160 cm; Wt 65.0 kg
[~2025-05-02 14:57] MED LIST changes: -APIX5TAB3 PO; +ASPI-1071 PO; +ATOR40TA PO; +CEFD300C3 PO; -FLUT1DIS20 INH; +LOSA25TA41 PO
[2025-05-02 15:01] VITALS: TEMP 97
--- NOTE | 2025-05-02 15:26 | Physician Documentation ---
History of Present Illness ~ Chief Complaint: Mechanical Fall Stated Complaint: FALL Time Seen by MD: 15:08 Primary Medical Doctor: Kevin HERNANDEZ This 75-year-old female presents to the ED after slipping and falling in the shower this morning. She struck the left side front face and forehead. Denies any loss of consciousness denies any thinners but did incur a laceration to her head bleeding is currently controlled. Additionally she says that she has a chronic history of abnormal wits of her right pupil which is somewhat dilated. Normal for her she says She currently denies any headaches. nausea or changes in vision, or severe pain other than the laceration on her forehead Day of Fall: May 02, 2025 Tetanus within 5 Years?: No Medication Reconciliation Allergies: Coded Allergies: No Known Allergies (Unverified , 05/02/25) Scheduled Aspirin (Ecotrin*), 1 TAB PO DAILY Atorvastatin Calcium* (Lipitor*), 1 TAB PO HS Budesonide/Formoterol Fumarate (Budesonide-Formoterol 80-4.5), 2 PUFFS PO BID, (Reported) Cefdinir (Cefdinir), 1 CAP PO Q12H Ferrous Sulfate (Ferrous Sulfate), 1 TAB PO MWF Losartan Potassium (Losartan Potassium), 25 MG PO DAILY Pantoprazole Sodium (Pantoprazole Sodium), 40 MG PO DAILY Quetiapine Fumarate (Quetiapine Fumarate), 1 TAB PO HS, (Reported) Miscellaneous Medications Alprazolam (Alprazolam), (Reported) Pramipexole Di-Hcl (Pramipexole Dihydrochloride), (Reported) albuterol inhaler (Pro-Air Inhaler), (Reported) Past Medical History Past Medical History: CVA/TIA/Stroke, High Cholesterol, Hypertension, COPD, Pulmonary Embolism, Diabetes, Leukemia, Anxiety, Depression Past Surgical History: orthopedic surgeries Other Past Surgical History: eye surgery Patient History: FH: heart disease FATHER FH: leukemia MOTHER FH: stroke FATHER FH: throat cancer Sister FH: type 2 diabetes FATHER Alcohol Use: None Drug Use: none Lives In: Homeless Review of Systems All Other Systems at this time: Reviewed and Negative ROS As stated above in the HPI, otherwise all systems are reviewed and negative. Physical Exam Vital Signs: Temperature: 97.0, Source: Oral, Heart Rate: 76, Respiratory Rate: 16, BP: 129/68, Pulse Oximetry: 93, Weight: 65.000 Physical Exam General: Alert, no apparent distress. HEENT: PERRL, EOMI, no injection, moist mucous membranes.horizontal 4.5 cm laceration superior to left brow Neck: Full range of motion. Respiratory: Lungs clear, no respiratory distress. Cardiovascular: Regular rate and rhythm, no murmurs. Neurologic: Oriented x4. Psychiatric: Normal mood and affect. Skin: Normal color, warm and dry. No edema, no ecchymosis. Procedures Laceration Repair : Anesthesia: Lidocaine w/ Epi Prep: irrigated by nurse Margins: revised Repaired: skin Wound Repaired With: sutures Suture Size/Type: 5-0 Number of Superficial Sutures: 1 Dressing Applied: non-adherent Tolerated Procedure Well?: yes, no complications Procedure Note running stitch Progress Results/Orders Results/Orders Orders - KORY BARGER COLLECTIONS CLERK Ct Head (05/02/25 15:24) Laceration/I&D Tray Set Up (05/02/25 ) Completed Orders - KORY BARGER COLLECTIONS CLERK Ct Head (05/02/25 15:24) Electrocardiogram (05/02/25 ) Lidocaine 1% W/Epi 1:100,000 (Xylocaine (05/02/25 15:45) Vital Signs 05/02/25 05/02/25 15:01 16:00 Temp 97.0 Pulse 76 Resp 16 B/P (MAP) 129/68 Pulse Ox 93 Medical Decision Making Findings Patient's CT was unremarkable for any intracranial abnormalities. He is able to approximate her laceration on her left brow without difficulty utilize in his single running stitch. Patient has remained hemodynamically stable does not present acutely ill or off of her cognitive baseline. At this time I am going to discharge her at her request. I offered hospital admission she declined Differential Dx:Considerations: Include: Closed head injury, Cardiac injury, Fracture(s), Intraabdominal injury, Pneumothorax, Cerebral contusion, Pulmonary contusion, Spine injury, Tracheal injury, Urological injury, Vascular injury, Abrasion(s), Contusion(s), Foreign body(s), Hematoma(s), Laceration(s), Encephalopathy, Other Departure Disposition: HOME / SELF CARE / HOMELESS Impression: Primary Impression: Fall Additional Impression: Laceration Condition: Stable Discharge Instructions: Fall Prevention in the Home, Adult, [id number] Referrals: NO PRIMARY CARE PROVIDER (PCP) Education Educated: Patient Educated regarding: diagnosis Signature Scribe Signature: e Attestation: Scribed for Kory Barger Meter Calibrator by Kory Carr NP . 05/02/25 15:40 KORY BARGER NP May 02, 2025 15:26
--- NOTE | 2025-05-02 15:37 | ELECTROCARDIOGRAPH REPORT ---
[facility] Test Date: 2025-05-02 Test Time: 15:12:49 Pat Name: MÓNICA JETT Department: EMERGENCY ROOM Room: Gender: F Asset Recovery Specialist: LAURA : 1950 Requested By: SHAYLA BARGER Order Number: [id number] Reading MD: Measurements Intervals [place] Rate: 71 P: 0 OH: 233 QRS: 78 QRSD: 88 T: 54 QT: 400 QTc: 435 Interpretive Statements Atrial-paced complexes Prolonged OH interval Low voltage, extremity leads Please click the below link to view image of tracing.
[2025-05-02] MEDS: LIDOcaine 1% W/epiNEPHrine 1:100,000 20ml vial SQ ONE (16:04)
--- NOTE | 2025-05-02 16:04 | RADIOLOGY REPORT ---
CT CT HEAD INDICATION: fall with head strike EXAM DATE: 05/02/2025 03:28 PM COMPARISON: MR MRI HEAD on DOS: 04/19/25, CT CTA NECK/HEAD on DOS: 04/19/25, CT CT STROKE ALERT on DOS: 04/18/25 RADIATION DOSE: CTDIvol: 53 mGy, DLP: 894 mGy*cm PROCEDURE: CT scans of the head were obtained from the vertex to the skull base. Sagittal and coronal reconstructions were provided. All CT scans at this medical facility are performed using dose modulation techniques as appropriate t o a performed exam including the following: Automated exposure control was utilized; adjustment of th e MA and/or KV according to patient size; and use of iterative reconstruction technique. FINDINGS: There is sulcal and ventricular prominence. The brainshows normal morphology and davis-whi te matter differentiation, without intracranial hemorrhage, extra-axial fluid collection, mass effect or acute large vessel infarct. The ventricles are normal in size. The basal cisterns are patent. The skull and visible facial bones are intact. The paranasal sinuses, mastoid air cells and middle ear c avities are well-aerated. The soft tissues of the scalp are unremarkable. IMPRESSION: No acute intracranial abnormality.
[2025-05-02 16:58] VITALS: BP 124/76; PULSE 71; RESP 16; O2SAT 94
== END 2025-05-02 17:00 | disposition home or self-care (01) ==
LOC: ER 14:58
DX: S01.81XA Laceration without foreign body of other part of head, initial encounter (principal); J44.9 Chronic obstructive pulmonary disease, unspecified; I10 Essential (primary) hypertension; E78.00 Pure hypercholesterolemia, unspecified; E11.9 Type 2 diabetes mellitus without complications; Z86.711 Personal history of pulmonary embolism; Z86.73 Personal history of transient ischemic attack (TIA), and cerebral infarction without residual deficits; Z79.82 Long term (current) use of aspirin; Z79.899 Other long term (current) drug therapy; Z59.00 Homelessness unspecified; W18.2XXA Fall in (into) shower or empty bathtub, initial encounter; Y93.E1 Activity, personal bathing and showering; Y92.89 Other specified places as the place of occurrence of the external cause; Y99.8 Other external cause status
CPT/HCPCS: 12013; 70450; 93005; 99284; A6258; A6449

== ENCOUNTER 2025-05-09 03:58 | Emergency (ER) | payer BC ==
[~2025-05-09] VITALS: Ht 160 cm; Wt 62.3 kg
[2025-05-09 04:07] VITALS: TEMP 97.6
--- NOTE | 2025-05-09 05:15 | Physician Documentation ---
History of Present Illness ~ Chief Complaint: Suture Removal Stated Complaint: STITCH REMOVAL Time Seen by MD: 05:05 Primary Medical Doctor: Kevin HERNANDEZ Patient presents to the emergency room for suture removal from a fall she sustained seven days ago. Police see prior note for further information. She reports no problems. Tetanus Within 5 Years: Yes Medication Reconciliation Allergies: Coded Allergies: No Known Allergies (Unverified , 05/02/25) Scheduled Aspirin (Ecotrin*), 1 TAB PO DAILY Atorvastatin Calcium* (Lipitor*), 1 TAB PO HS Budesonide/Formoterol Fumarate (Budesonide-Formoterol 80-4.5), 2 PUFFS PO BID, (Reported) Cefdinir (Cefdinir), 1 CAP PO Q12H Ferrous Sulfate (Ferrous Sulfate), 1 TAB PO MWF Losartan Potassium (Losartan Potassium), 25 MG PO DAILY Pantoprazole Sodium (Pantoprazole Sodium), 40 MG PO DAILY Quetiapine Fumarate (Quetiapine Fumarate), 1 TAB PO HS, (Reported) Miscellaneous Medications Alprazolam (Alprazolam), (Reported) Pramipexole Di-Hcl (Pramipexole Dihydrochloride), (Reported) albuterol inhaler (Pro-Air Inhaler), (Reported) Past Medical History Past Medical History: CVA/TIA/Stroke, High Cholesterol, Hypertension, COPD, Pulmonary Embolism, Diabetes, Leukemia, Anxiety, Depression Past Surgical History: orthopedic surgeries Other Past Surgical History: eye surgery Patient History: FH: heart disease FATHER FH: leukemia MOTHER FH: stroke FATHER FH: throat cancer Sister FH: type 2 diabetes FATHER Alcohol Use: None Drug Use: none Lives In: Homeless Review of Systems ROS All review of systems negative except as per HPI Physical Exam Vital Signs: Temperature: 97.6, Source: Temporal, Heart Rate: 77, Respiratory Rate: 18, BP: 122/77, Pulse Oximetry: 96, Weight: 62.270 Oxygen Flow Rate: 0 Physical Exam General: Patient is awake, alert, oriented x4 in no acute distress and well appearing.~ Head: Normocephalic with well healing wound over patient's left eyebrow with no signs of infection Eyes: Conjunctival normal. EOMI. PERRL. ENT: Mucous membranes moist. Neck: Supple, trachea is midline. Chest: Clear to auscultation bilaterally without rales, rhonchi, or wheezes. There is no accessory muscle use or retractions. Cardiac: RRR without murmurs, gallops, or rubs. Progress Results/Orders Results/Orders Vital Signs 05/09/25 04:07 Temp 97.6 Pulse 77 Resp 18 B/P (MAP) 122/77 Pulse Ox 96 O2 Flow Rate 0 Medical Decision Making Findings Patient presented to the emergency room for suture removal. Sutures removed without incident. Departure Disposition: HOME / SELF CARE / HOMELESS Impression: Primary Impression: Visit for suture removal Condition: Stable Discharge Instructions: Suture Removal, Care After Referrals: NO PRIMARY CARE PROVIDER (PCP) Signature Scribe Signature: No scribe Attestation: The note accurately reflects work and decisions made by me.Neil Smith MD 05/09/25 05:15 NEIL SMITH MD May 09, 2025 05:15
[2025-05-09 05:25] VITALS: BP 130/68; PULSE 74; RESP 16; O2SAT 99
== END 2025-05-09 05:26 | disposition home or self-care (01) ==
LOC: ER 03:59
DX: S01.112D Laceration without foreign body of left eyelid and periocular area, subsequent encounter (principal); E11.9 Type 2 diabetes mellitus without complications; E78.00 Pure hypercholesterolemia, unspecified; I10 Essential (primary) hypertension; J44.9 Chronic obstructive pulmonary disease, unspecified; F41.9 Anxiety disorder, unspecified; F32.A Depression, unspecified; Z86.73 Personal history of transient ischemic attack (TIA), and cerebral infarction without residual deficits; Z79.82 Long term (current) use of aspirin; W19.XXXD Unspecified fall, subsequent encounter
CPT/HCPCS: 99281

== ENCOUNTER 2025-05-24 17:31 | Emergency (ER) | payer BC ==
[~2025-05-24] VITALS: Ht 160 cm; Wt 62.0 kg
[2025-05-24 17:38] VITALS: BP 115/53; PULSE 91; RESP 16; O2SAT 91
--- NOTE | 2025-05-24 19:20 | Physician Documentation ---
History of Present Illness ~ General Chief Complaint: Pain Stated Complaint: ARTHRITIS Time Seen by MD: 19:01 Primary Medical Doctor: Kevin History of Present Illness Initial Comments Patient presents to the emergency room complaining of chronic pain for years to her joints. She has taken nothing for her pain. She states that she has had some opioids previously in her doctor will not give her any. She states ibuprofen and Tylenol do nothing. Medication Reconciliation Allergies: Coded Allergies: No Known Allergies (Unverified , 05/02/25) Scheduled Aspirin (Ecotrin*), 1 TAB PO DAILY Atorvastatin Calcium* (Lipitor*), 1 TAB PO HS Budesonide/Formoterol Fumarate (Budesonide-Formoterol 80-4.5), 2 PUFFS PO BID, (Reported) Cefdinir (Cefdinir), 1 CAP PO Q12H Ferrous Sulfate (Ferrous Sulfate), 1 TAB PO MWF Losartan Potassium (Losartan Potassium), 25 MG PO DAILY Pantoprazole Sodium (Pantoprazole Sodium), 40 MG PO DAILY Quetiapine Fumarate (Quetiapine Fumarate), 1 TAB PO HS, (Reported) Miscellaneous Medications Alprazolam (Alprazolam), (Reported) Pramipexole Di-Hcl (Pramipexole Dihydrochloride), (Reported) albuterol inhaler (Pro-Air Inhaler), (Reported) Past Medical History Past Medical History: CVA/TIA/Stroke, High Cholesterol, Hypertension, COPD, Pulmonary Embolism, Diabetes, Leukemia, Anxiety, Depression Past Surgical History: orthopedic surgeries Other Past Surgical History: eye surgery Patient History: FH: heart disease FATHER FH: leukemia MOTHER FH: stroke FATHER FH: throat cancer Sister FH: type 2 diabetes FATHER Alcohol Use: None Drug Use: none Lives In: Homeless Review of Systems ROS All review of systems negative except as per HPI Physical Exam Physical Exam Vital Signs: Temperature: 98.2, Source: Temporal, Heart Rate: 91, Respiratory Rate: 16, BP: 115/53, Pulse Oximetry: 91, Weight: 62.000 Oxygen Flow Rate: 0 Physical Exam General: Patient is awake, alert, oriented x4 in no acute distress sitting comfortably with her legs crossed up on a chair Head: Normocephalic and atraumatic. Eyes: Conjunctival normal. EOMI. PERRL. ENT: Mucous membranes moist. Neck: Supple, trachea is midline. Chest: Clear to auscultation bilaterally without rales, rhonchi, or wheezes. There is no accessory muscle use or retractions. Cardiac: RRR without murmurs, gallops, or rubs. Abd: Soft, nondistended, nontender, with normoactive bowel sounds. No guarding, rebound, or rigidity. Extremities: Normal strength. Normal range of motion. No deformities or edema. Progress Results/Orders Results/Orders Vital Signs 05/24/25 17:38 Temp 98.2 Pulse 91 Resp 16 B/P (MAP) 115/53 Pulse Ox 91 O2 Flow Rate 0 Medical Decision Making Findings Patient's pain is chronic in nature and I will not be giving her opioids. I offered her ibuprofen and Tylenol and she states that she does not work. Advised her to follow up with her primary care doctor Departure Disposition: HOME / SELF CARE / HOMELESS Impression: Primary Impression: Chronic pain Condition: Stable Discharge Instructions: Chronic Pain, Adult Additional Instructions: Follow up with your doctor for pain management. Recommend Tylenol and ibuprofen for your pain. Follow up with your doctor for possible physical therapy referral Referrals: NO PRIMARY CARE PROVIDER (PCP) Education Educated: Patient Educated regarding: diagnosis, treatment, need for follow up Signature Scribe Signature: No scribe Attestation: The note accurately reflects work and decisions made by me.Neil Smith MD 05/24/25 19:20 NEIL SMITH MD May 24, 2025 19:20
[2025-05-24 19:34] VITALS: TEMP 98.2
== END 2025-05-24 19:36 | disposition home or self-care (01) ==
LOC: ER 17:32
DX: G89.29 Other chronic pain (principal); E11.9 Type 2 diabetes mellitus without complications; E78.00 Pure hypercholesterolemia, unspecified; I10 Essential (primary) hypertension; J44.9 Chronic obstructive pulmonary disease, unspecified; M19.90 Unspecified osteoarthritis, unspecified site; F41.9 Anxiety disorder, unspecified; F32.A Depression, unspecified; Z86.73 Personal history of transient ischemic attack (TIA), and cerebral infarction without residual deficits; Z79.82 Long term (current) use of aspirin
CPT/HCPCS: 99282

== ENCOUNTER 2025-06-30 07:54 | Emergency (ER) | payer BC ==
[~2025-06-30] VITALS: Ht 160 cm; Wt 61.4 kg
[2025-06-30 08:42] LABS: MEAN PLATELET VOLUME 8.5 FL (7.4-10.4)
[2025-06-30 09:01] LABS: CREATININE 0.79 MG/DL (0.40-0.90); TOTAL CARBON DIOXIDE 29.5 MMOL/L (24-32); eCRCL 51 ML/MIN; eGFR 71 ML/MIN
--- NOTE | 2025-06-30 09:26 | Physician Documentation ---
History of Present Illness Chief Complaint: Flank Pain Stated Complaint: SIDE PAIN Time Seen by MD: 09:11 Primary Medical Doctor: Kevin Mode of Arrival: POV HPI 75-year-old female presenting with right-sided abdominal and flank pain She tells me that for the past 2 days she has had pain in her right flank and abdomen. She states that it seems to hurt in the right kidney region, as well as in the right lower back. She also reports pain into the right side of her abdomen. It is constant, nothing makes it better. She has not had a bowel movement recently. No fevers or chills. No productive cough or shortness of breath. No dysuria or hematuria. No history of abdominal surgeries, she still has her gallbladder Medication Reconciliation Allergies: Coded Allergies: No Known Allergies (Unverified , 06/30/25) Scheduled Aspirin (Ecotrin*), 1 TAB PO DAILY Atorvastatin Calcium* (Lipitor*), 1 TAB PO HS Budesonide/Formoterol Fumarate (Budesonide-Formoterol 80-4.5), 2 PUFFS PO BID, (Reported) Cefdinir (Cefdinir), 1 CAP PO Q12H Ciprofloxacin HCl (Ciprofloxacin HCl), 1 TAB PO Q12H Ferrous Sulfate (Ferrous Sulfate), 1 TAB PO MWF Losartan Potassium (Losartan Potassium), 25 MG PO DAILY Pantoprazole Sodium (Pantoprazole Sodium), 40 MG PO DAILY Quetiapine Fumarate (Quetiapine Fumarate), 1 TAB PO HS, (Reported) Scheduled PRN Hydrocodone Bit/Acetaminophen 5/325 MG ([place] 5/325 MG), 1 TAB PO Q8H PRN for pain Miscellaneous Medications Alprazolam (Alprazolam), (Reported) Pramipexole Di-Hcl (Pramipexole Dihydrochloride), (Reported) albuterol inhaler (Pro-Air Inhaler), (Reported) Past Medical History Past Medical History: CVA/TIA/Stroke, High Cholesterol, Hypertension, COPD, Pulmonary Embolism, Diabetes, Leukemia, Anxiety, Depression Past Surgical History: orthopedic surgeries Other Past Surgical History: eye surgery Patient History: FH: heart disease FATHER FH: leukemia MOTHER FH: stroke FATHER FH: throat cancer Sister FH: type 2 diabetes FATHER Alcohol Use: None Drug Use: none Lives In: Homeless Review of Systems Constitutional: Denies: fever Gastrointestinal: Reports: abdominal pain, nausea, constipated; Denies: vomiting Physical Exam Vital Signs: Temperature: 98.4, Source: Temporal, Heart Rate: 83, Respiratory Rate: 16, BP: 134/82, Pulse Oximetry: 94, Weight: 61.360 Oxygen Flow Rate: 0 Physical Exam General: This is a pleasant and nontoxic appearing older woman sitting quietly in bed HEENT: Atraumatic, oropharynx appears dry Heart: Regular rate and rhythm, normal-appearing peripheral perfusion Lungs: Clear breath sounds bilateral, normal work of breathing, normal oxygen saturation on room air Abdomen: Soft, nondistended. She has significant tenderness to palpation in the right abdomen including in the right upper quadrant and right lower quadrant with voluntary guarding. Minimal left-sided tenderness. Back: The patient has significant bruising to her right flank with tenderness to palpation in this region. No focal reproducible paralumbar muscle tenderness . Possible CVA tenderness on the right Neuro: Alert and oriented Psychiatric: Calm and cooperative with exam Progress Results/Orders Results/Orders Orders - ALEIDA GARCIA MD Urinalysis, Cult If Indicated (06/30/25 08:01) Cbc/Diff (06/30/25 08:01) Completed Orders - ALEIDA GARCIA MD BMP (06/30/25 08:01) Lipase (06/30/25 08:01) CMP (06/30/25 08:01) Vital Signs 06/30/25 06/30/25 06/30/25 07:59 09:09 09:09 Temp 98.4 98.4 Pulse 93 83 Resp 16 16 B/P (MAP) 142/78 134/82 (99) Pulse Ox 96 94 O2 Flow Rate 0 0 Laboratory Tests Test 06/30/25 08:14 CBC Comment Sodium Level 143 Potassium Level 3.8 Chloride Level 105 Carbon Dioxide Level 29.5 Anion Gap 9 Blood Urea Nitrogen 17 Creatinine 0.79 Estimated GFR/1.73 m2 71 BUN/Creatinine Ratio 21.5 H Glucose Level 123 H Calcium Level 8.9 Total Bilirubin 0.6 Aspartate Amino Transf (AST/SGOT) 20 Alanine Aminotransferase (ALT/SGPT) 20 Alkaline Phosphatase 171 H Total Protein 7.2 Albumin 3.4 Globulin 3.8 Albumin/Globulin Ratio 0.9 L Lipase 14 L Chemistry Comments EKG/XRAY/CT/US/VASC/MRI CT : Impression I personally interpreted the CT scan, and this shows 2 right-sided broken ribs, no appendicitis or bowel obstruction Medical Decision Making Differential Dx:Considerations: Include: Appendicitis, Bowel obstruction, Cholangitis, Cholelithasis, Constipation, Diverticular disease, Gastritis/PUD, Hernia, Hepatitis, Pancreatitis, Trauma, intraabdominal, Urinary obstruction, Urinary tract infection Additional Comments 75-year-old female presenting with abdominal and flank pain. On exam she has a unexplained bruising to her right flank. She also has significant abdominal tenderness in the right side. She was given pain and nausea medicine. Labs show significant leukocytosis but normal LFTs. CT scan of the abdomen shows broken ribs in the right side, consistent with the area of bruising. No other dangerous intra-abdominal process. She has not have significant shortness of breath or hypoxia. She will be treated symptomatically for these broken ribs. Urinalysis then shows a urinary tract infection. The leukocytosis is likely a combination of UTI/pyelonephritis as well as stress reaction from the broken ribs. I did offer admission, but she declined, felt that she was doing well enough to be discharged home. She will be discharged with antibiotics and pain medication. Return precautions given. Departure Time of Disposition: 14:00 Disposition: 01 HOME / SELF CARE / HOMELESS Impression: Primary Impression: Acute urinary tract infection Additional Impression: Rib fractures Condition: Improved Discharge Instructions: Pyelonephritis, Adult, Rib Fracture Referrals: NO PRIMARY CARE PROVIDER (PCP) Prescriptions Hydrocodone Bit/Acetaminophen 5/325 MG ([place] 5/325 MG) 5 Mg/325 Mg Tablet 1 TAB PO Q8H PRN for pain for 10 Days, #12 TAB Prov: ALEIDA GARCIA MD 06/30/25 Ciprofloxacin HCl (Ciprofloxacin HCl) 500 Mg Tab 1 TAB PO Q12H for 7 Days, #14 TAB Prov: ALEIDA GARCIA MD 06/30/25 Education Educated: Patient Educated regarding: diagnosis, treatment, need for follow up Signature Scribe Signature: denisha Attestation: ALEIDA Shankar MD Jun 30, 2025 09:26
[2025-06-30 09:33] LABS: RED CELL DISTRIBUTION WIDTH 28.9 % (11.5-14.5)
[2025-06-30] MEDS: normal saline 500ml IV soln 500 ML IV ONE (09:49)
[2025-06-30] MEDS: ondansetron/PF 4mg/2ml inj IV ONE (09:49)
[2025-06-30] MEDS: morphine 4 MG/ML inj SYRINge IV ONE (09:50)
[2025-06-30] MEDS ORDERED: iohexol 300mg/ml 100ml inj. ONE (09:51)
[2025-06-30 10:21] LABS: EOSINOPHILS % (MANUAL) 2.0 % (0-6); LYMPHOCYTES % (MANUAL) 40.0 % (21-51); MONOCYTES % (MANUAL) 5.0 % (2-12); NEUTROPHILS % (MANUAL) 52.0 % (42-75); REACTIVE LYMPHOCYTES % 1.0 % (0-0)
[2025-06-30 10:22] LABS: PLATELET ESTIMATE INCREASED
[2025-06-30 10:44] LABS: LEUKOCYTE ESTERASE ,URINE NEGATIVE (Neg); NITRITES, URINE POSITIVE (Neg); OCCULT BLOOD,URINE NEGATIVE (Neg)
[2025-06-30 10:50] LABS: UA COLLECTION TYPE CLN CATCH MIDSTREAM
[2025-06-30 10:51] LABS: SQUAMOUS EPITHELIAL CELL,UR FEW /LPF (FEW)
[2025-06-30 10:52] LABS: AMORPHOUS URATES 1+; RENAL CELLS, URINE FEW /HPF
--- NOTE | 2025-06-30 12:47 | RADIOLOGY REPORT ---
CLINICAL INFORMATION: Right-sided abdominal pain and right-sided flank bruising with no known history of injury. TECHNIQUE: Axial CT images of the abdomen and pelvis were obtained after the uneventful administration of 100 mL Omnipaque 300 IV contrast. Coronal and sagittal reformatted images were obtained, reviewed, and stored. All CT scans at this medical facility are performed using dose modulation techniques as appropriate to a performed exam including the following: Automated exposure control was utilized; adjustment of the MA and/or KV according to patient size; and use of iterative reconstruction technique. CTDIvol = 11.15 mGy DLP = 540.81 mGy-cm COMPARISON: None FINDINGS: Lung bases: Small right pleural fluid collection with overlying atelectasis. The fluid collection measures simple fluid attenuation. Large hiatal hernia partially visualized, containing most of the body and fundus of the stomach and pancreatic body and tail, as well as portions of the splenic vein. Liver: Hepatic steatosis. Small cyst in the liver near the gallbladder fossa. Biliary: Mildly distended gallbladder. No calcified gallstones visualized. Spleen: Unremarkable. Pancreas: Unremarkable. No inflammatory changes, ductal dilatation, or mass identified. Adrenal glands: Left adrenal nodule measures up to 2.4 cm. Kidneys: No hydronephrosis or mass. Aorta/Vascular: Moderate atherosclerotic calcification. No abdominal aortic aneurysm. Lymph Nodes: No mass or lymphadenopathy. Bowel/mesentery: Nonspecific nondilated fluid-filled small bowel loops. No small bowel obstruction. Appendix is visualized and appears unremarkable. Scattered colonic diverticula without adjacent inflammatory changes to suggest diverticulitis. Pelvic organs: Grossly unremarkable. Bladder: Unremarkable. No mass. Abdominal wall: No mass or hernia. Bones: There are acute appearing fractures of the right posterolateral 10th and 11th ribs. There is adjacent soft tissue swelling and small locules of gas. IMPRESSION: 1. Acute fractures of the right posterolateral 10th and 11th ribs with adjacent soft tissue swelling and locules of gas. 2. Small right pleural fluid collection with overlying atelectasis. 3. Large hiatal hernia. 4. Mildly distended gallbladder. No calcified gallstones visualized. Correlate with clinical findings. 5. Left adrenal nodule is indeterminate on this single phase of contrast. Correlate with clinical findings. If clinically indicated, nonemergent adrenal mass protocol MRI could be considered. 6. Nonspecific nondilated fluid-filled small bowel loops. Findings may be seen with ileus or enteritis in the appropriate clinical setting. No small bowel obstruction. 7. Scattered colonic diverticula without adjacent inflammatory changes to suggest diverticulitis. 8. Additional findings as described above.
[2025-06-30] MEDS: CefTRIAXone/D5W-Rocephin 1gm 50 ML IV ONE (13:39)
[2025-06-30] MEDS: HYDROcodone/acetaminophen 5mg/325mg tablet PO ONE (13:39)
[2025-06-30] MEDS ORDERED: HYDR-3965 PO (14:02)
[2025-06-30] MEDS ORDERED: CIPR-458 PO (14:02)
[2025-06-30 14:15] VITALS: BP 127/71; PULSE 82; TEMP 98.4; O2SAT 91
[2025-06-30 14:24] VITALS: RESP 16
[2025-06-30] MEDS: ketorolac trometh 15mg/ml vial 15 MG/ML ML IV ONE (14:24)
== END 2025-06-30 14:30 | disposition home or self-care (01) ==
LOC: ER 07:54
DX: S22.31XA Fracture of one rib, right side, initial encounter for closed fracture (principal); S30.11XA Contusion of abdominal wall, initial encounter; N39.0 Urinary tract infection, site not specified; E11.9 Type 2 diabetes mellitus without complications; E78.00 Pure hypercholesterolemia, unspecified; F41.9 Anxiety disorder, unspecified; F32.A Depression, unspecified; I10 Essential (primary) hypertension; J44.9 Chronic obstructive pulmonary disease, unspecified; Z86.711 Personal history of pulmonary embolism; Z86.73 Personal history of transient ischemic attack (TIA), and cerebral infarction without residual deficits; Z79.82 Long term (current) use of aspirin; Z79.899 Other long term (current) drug therapy; Z59.00 Homelessness unspecified; X58.XXXA Exposure to other specified factors, initial encounter; Y93.89 Activity, other specified; Y92.89 Other specified places as the place of occurrence of the external cause; Y99.8 Other external cause status
CPT/HCPCS: 36415; 74177; 80053; 81001; 83690; 85007; 85025; 87088; 96361; 96365; 96375; 99285; J0696; J1885; J2270; J2405; J7040; Q9967; 87077; 87186

== ENCOUNTER 2025-07-25 23:57 | Emergency (ER) | payer BC ==
[~2025-07-25] VITALS: Ht 160 cm; Wt 57.0 kg
[~2025-07-25 23:57] MED LIST changes: -ATOR40TA PO
[2025-07-26 00:23] VITALS: BP 136/62; PULSE 95; RESP 15; O2SAT 98
--- NOTE | 2025-07-26 00:48 | Physician Documentation ---
History of Present Illness General Chief Complaint: See Chief Complaint Stated Complaint: LEG PAIN Time Seen by MD: 01:52 Primary Medical Doctor: Kevin History of Present Illness Initial Comments This is a 75-year-old female with a history of restless leg syndrome who presents with uncomfortable restless legs reporting that medication she normally takes for restless legs syndrome is no longer working. Reports no other acute symptoms or concerns. History as above. Medication Reconciliation Allergies: Coded Allergies: No Known Allergies (Unverified , 07/26/25) Scheduled Aspirin (Ecotrin*), 1 TAB PO DAILY Budesonide/Formoterol Fumarate (Budesonide-Formoterol 80-4.5), 2 PUFFS PO BID, (Reported) Cefdinir (Cefdinir), 1 CAP PO Q12H Ferrous Sulfate (Ferrous Sulfate), 1 TAB PO MWF Losartan Potassium (Losartan Potassium), 25 MG PO DAILY Pantoprazole Sodium (Pantoprazole Sodium), 40 MG PO DAILY Quetiapine Fumarate (Quetiapine Fumarate), 1 TAB PO HS, (Reported) Miscellaneous Medications Alprazolam (Alprazolam), (Reported) Pramipexole Di-Hcl (Pramipexole Dihydrochloride), (Reported) albuterol inhaler (Pro-Air Inhaler), (Reported) Discontinued Medications Atorvastatin Calcium* (Lipitor*), 1 TAB PO HS Discontinued Reason: Auto Discontinued Past Medical History Past Medical History: CVA/TIA/Stroke, High Cholesterol, Hypertension, COPD, Pulmonary Embolism, Diabetes, Leukemia, Anxiety, Depression Past Surgical History: orthopedic surgeries Other Past Surgical History: eye surgery Smoking: Cigarettes Alcohol Use: None Drug Use: none Lives In: Homeless Review of Systems ROS As stated above in the HPI, otherwise all systems are reviewed and negative. Physical Exam Physical Exam Vital Signs: Temperature: 97.6, Source: Temporal, Heart Rate: 95, Respiratory Rate: 15, BP: 136/62, Pulse Oximetry: 98, Weight: 57.000 Physical Exam General: Patient is sleeping, easily aroused in no acute distress Head: Normocephalic and atraumatic. Eyes: Conjunctival normal. EOMI. PERRL. ENT: Mucous membranes moist. Neck: Supple, trachea is midline. Chest: Clear to auscultation bilaterally without rales, rhonchi, or wheezes. There is no accessory muscle use or retractions. Cardiac: RRR without murmurs, gallops, or rubs. Extremities: Normal strength. Normal range of motion. No deformities or edema. No abnormal movements appreciated Progress Results/Orders Results/Orders Orders - NEIL SMITH MD Ropinirole Tablet (Requip Tablet) (07/26/25 02:00) Vital Signs 07/26/25 00:23 Temp 97.6 Pulse 95 Resp 15 B/P (MAP) 136/62 Pulse Ox 98 Medical Decision Making Additional information obtaine: N/A Findings Patient presents to the emergency room with report of restless leg syndrome. I do not believe she is suffering from an emergency and he had he had not feel emergent labs or imaging is necessary. All try ropinirole for her with in structions to follow up her doctor Differential Diagnosis Parkinson's, restless leg syndrome, electrolyte disturbances, dehydration Departure Disposition: 01 HOME / SELF CARE / HOMELESS Impression: Primary Impression: Restless leg Condition: Stable Discharge Instructions: Restless Legs Syndrome Additional Instructions: Make sure you stay hydrated. Follow up with your doctor for management of restless leg. The prescription I gave you that has the starting dose and it can be increased over time but this needs to be followed by your doctor Referrals: NO PRIMARY CARE PROVIDER (PCP) Prescriptions Ropinirole Hcl (REQUIP tablet) 0.25 Mg Tablet 1 TAB PO HS, #15 TAB 0 Refills Prov: NEIL SMITH MD 07/26/25 Signature Scribe Signature: No scribe Attestation: The note accurately reflects work and decisions made by me.Neil Smith MD 07/26/25 02:04 RIRI CASSIDY Jul 26, 2025 00:48 NEIL SMITH MD Jul 26, 2025 02:04
[2025-07-26] MEDS ORDERED: ROPI0.2544 PO (02:04)
[2025-07-26 02:08] VITALS: TEMP 97.6
== END 2025-07-26 02:15 | disposition home or self-care (01) ==
LOC: ER 23:58
DX: G25.81 Restless legs syndrome (principal); E78.00 Pure hypercholesterolemia, unspecified; E11.9 Type 2 diabetes mellitus without complications; I10 Essential (primary) hypertension; J44.9 Chronic obstructive pulmonary disease, unspecified; F41.9 Anxiety disorder, unspecified; F32.A Depression, unspecified; F17.210 Nicotine dependence, cigarettes, uncomplicated; Z86.711 Personal history of pulmonary embolism; Z86.73 Personal history of transient ischemic attack (TIA), and cerebral infarction without residual deficits; Z59.00 Homelessness unspecified; Z79.82 Long term (current) use of aspirin; Z79.899 Other long term (current) drug therapy; Z98.890 Other specified postprocedural states
CPT/HCPCS: 99283

== ENCOUNTER 2025-07-29 02:11 | Emergency (ER) | payer BC ==
[~2025-07-29] VITALS: Ht 160 cm; Wt 62.7 kg
[~2025-07-29 02:11] MED LIST changes: +ROPI0.2544 PO
[2025-07-29 02:14] VITALS: TEMP 98.2
--- NOTE | 2025-07-29 02:53 | RADIOLOGY REPORT ---
CHEST RADIOGRAPH Indication: coughx1 month Technique: Single frontal view of the chest was obtained COMPARISON: DI CHEST,SINGLE VIEW on DOS: 04/18/25, DI CHEST,SINGLE VIEW on DOS: 01/22/25, DI CHEST,TWO VIEWS on DOS: 09/19/24, DI CHEST,SINGLE VIEW on DOS: 08/18/24, DI CHEST,SINGLE VIEW on DOS: 02/22/24 FINDINGS: Lines and Tubes: None Lungs: Clear Pleura: No effusion. No pneumothorax. Cardiomediastinal contours: Unremarkable Bones: Unremarkable IMPRESSION: 1. No acute disease.
--- NOTE | 2025-07-29 03:08 | Physician Documentation ---
History of Present Illness ~ Chief Complaint: Cold, cough & congestion Stated Complaint: SEVERE COUGH Time Seen by MD: 02:51 Primary Medical Doctor: Kevin Mode of Arrival: POV HPI 75-year-old female, history of COPD presenting with shortness of breath and a cough She tells me that over the past 2 weeks she has had gradually worsening symptoms. She reports having congestion, sore throat, cough, and chest tightness. She does feel like she is wheezing. She does use an inhaler been feels like it isn't really helping now. No definite fevers. No abdominal pain, vomiting or diarrhea. She does have swelling in both her ankles, but no significant change She does have a history of COPD. She has not been on steroids recently. No history of heart problems Medication Reconciliation Allergies: Coded Allergies: No Known Allergies (Unverified , 07/26/25) Scheduled Aspirin (Ecotrin*), 1 TAB PO DAILY Budesonide/Formoterol Fumarate (Budesonide-Formoterol 80-4.5), 2 PUFFS PO BID, (Reported) Cefdinir (Cefdinir), 1 CAP PO Q12H Ferrous Sulfate (Ferrous Sulfate), 1 TAB PO MWF Losartan Potassium (Losartan Potassium), 25 MG PO DAILY Pantoprazole Sodium (Pantoprazole Sodium), 40 MG PO DAILY Prednisone* (Prednisone*), 2 TAB PO DAILY Quetiapine Fumarate (Quetiapine Fumarate), 1 TAB PO HS, (Reported) Ropinirole Hcl (REQUIP tablet), 1 TAB PO HS Miscellaneous Medications Alprazolam (Alprazolam), (Reported) Pramipexole Di-Hcl (Pramipexole Dihydrochloride), (Reported) albuterol inhaler (Pro-Air Inhaler), (Reported) Past Medical History Past Medical History: CVA/TIA/Stroke, High Cholesterol, Hypertension, COPD, Pulmonary Embolism, Diabetes, Leukemia, Anxiety, Depression Past Surgical History: orthopedic surgeries Other Past Surgical History: eye surgery Patient History: FH: heart disease FATHER FH: leukemia MOTHER FH: stroke FATHER FH: throat cancer Sister FH: type 2 diabetes FATHER Alcohol Use: None Drug Use: none Lives In: Homeless Review of Systems Constitutional: Denies: fever ENT: Reports: nose congestion Respiratory: Reports: cough, shortness of breath Physical Exam Vital Signs: Temperature: 98.2, Source: Oral, Heart Rate: 78, Respiratory Rate: 16, BP: 157/54, Pulse Oximetry: 95, Weight: 62.700 Oxygen Flow Rate: 0 Physical Exam General: This is a thin older woman, with slightly increased work of breathing HEENT: Atraumatic, oropharynx is moist. Mild generalized posterior oropharyngeal erythema, no unilateral swelling or white exudate Heart: Regular rate and rhythm, no murmur, normal-appearing peripheral perfusion Lungs: Diminished breath sounds bilateral with expiratory wheezes and a prolonged expiratory phase, increased respiratory rate at rest, she is speaking in full sentences, normal oxygen saturation on room air Abdomen: Soft, nondistended, nontender all quadrants Extremities: Warm and well-perfused, no edema to both ankles only Neuro: Alert and oriented Psychiatric: Calm and cooperative with exam Progress Results/Orders Results/Orders Orders - ALEIDA GARCIA MD Saline Lock (07/29/25 02:19) Chest,Single View (07/29/25 02:30) Covid19 Binax Poc Result Entry (07/29/25 03:05) Completed Orders - ALEIDA GARCIA MD Chest,Single View (07/29/25 02:30) Cbc/Diff (07/29/25 03:05) CMP (07/29/25 03:05) PBNP (07/29/25 03:05) Methylprednisolone Sod Succ (Solumedrol (07/29/25 03:10) Ipratropium/Albuterol Nebule (Ipratrop/A (07/29/25 04:00) Medications Received in ER Medications (Trade) Dose Ordered Sig/Elida Route PRN Reason Start Time Stop Time Status Last Admin Dose Admin (SoluMEDROL 125mg inj) 125 mg ONCE ONCE IV 07/29/25 03:10 07/29/25 03:11 DC 07/29/25 03:27 125 MG (ipratrop/ albuterol 0.5-3(2.5) MG/3ml nebule) 3 ml Q4H ONCE NEB 07/29/25 04:00 07/29/25 04:02 DC 07/29/25 04:02 3 ML Vital Signs 07/29/25 07/29/25 07/29/25 07/29/25 02:14 02:38 04:05 04:14 Temp 98.2 Pulse 78 78 73 Resp 18 16 8 16 B/P (MAP) 157/54 Pulse Ox 95 94 97 O2 Delivery Room Air* Room Air* O2 Flow Rate 0 0 0 FiO2 21 21 Laboratory Tests Test 07/29/25 03:15 07/29/25 03:16 SARS-CoV-2 Antigen (Rapid) Negative White Blood Count 8.1 Red Blood Count 3.87 L Hemoglobin 8.4 L Hematocrit 27.8 L Mean Corpuscular Volume 71.7 L Mean Corpuscular Hemoglobin 21.7 L Mean Corpuscular Hemoglobin Concent 30.2 L Red Cell Distribution Width 23.1 H Platelet Count 224 Mean Platelet Volume 8.5 Neutrophils (%) (Auto) 53.8 Lymphocytes (%) (Auto) 34.5 Monocytes (%) (Auto) 4.9 Eosinophils (%) (Auto) 6.5 H Basophils (%) (Auto) 0.3 Neutrophils # (Auto) 4.3 Lymphocytes # (Auto) 2.8 Monocytes # (Auto) 0.4 Eosinophils # (Auto) 0.5 Basophils # (Auto) 0.0 CBC Comment Sodium Level 142 Potassium Level 4.0 Chloride Level 107 Carbon Dioxide Level 30.5 Anion Gap 5 L Blood Urea Nitrogen 15 Creatinine 0.64 Estimated GFR/1.73 m2 90 BUN/Creatinine Ratio 23.4 H Glucose Level 106 H Calcium Level 8.1 L Total Bilirubin 0.3 Aspartate Amino Transf (AST/SGOT) 16 Alanine Aminotransferase (ALT/SGPT) 13 Alkaline Phosphatase 111 Pro-B-Type Natriuretic Peptide 1038 H Total Protein 6.2 L Albumin 3.3 L Globulin 2.9 Albumin/Globulin Ratio 1.1 Chemistry Comments EKG/XRAY/CT/US/VASC/MRI Chest X-Ray : Additional Comments I personally interpreted the x-ray, and it shows: No focal consolidation, pulmonary edema, or pneumothorax Medical Decision Making Additional information obtaine: N/A Findings na Differential Dx:Considerations: Include: Allergic rhinitis, Pharyngitis-Viral, Pneumonia, URI Differential Diagnosis The patient presents with shortness of breath, congestion and sore throat. Per her history and exam, this seems most likely to represent a viral upper respiratory infection with a COPD exacerbation. She was given steroids and breathing treatments. Chest x-ray does not show a pneumonia. Her throat exam is not consistent with strep throat. She has no findings to suggest sepsis. She has no chest pain or other findings to suggest ACS or congestive heart failure. After treatment she felt better and requested to leave. She will be discharged with a course of steroids, she still has plenty of her breathing treatments, and she was given return precautions. Departure Time of Disposition: 05:01 Disposition: 01 HOME / SELF CARE / HOMELESS Impression: Primary Impression: Acute respiratory infection Additional Impression: COPD exacerbation Condition: Improved Discharge Instructions: Chronic Obstructive Pulmonary Disease Exacerbation Referrals: NO PRIMARY CARE PROVIDER (PCP) Prescriptions Prednisone* (Prednisone*) 20 Mg Tablet 2 TAB PO DAILY for 4 Days, #8 TAB Prov: ALEIDA GARCIA MD 07/29/25 Education Educated: Patient Educated regarding: diagnosis, treatment, need for follow up Signature Scribe Signature: denisha Attestation: ALEIDA Shankar MD Jul 29, 2025 03:08
[2025-07-29 03:40] LABS: RED CELL DISTRIBUTION WIDTH 23.1 % (11.5-14.5)
[2025-07-29 03:42] LABS: MEAN PLATELET VOLUME 8.5 FL (7.4-10.4)
[2025-07-29 03:47] LABS: CREATININE 0.64 MG/DL (0.40-0.90); TOTAL CARBON DIOXIDE 30.5 MMOL/L (24-32); eCRCL 63 ML/MIN; eGFR 90 ML/MIN
[2025-07-29 03:55] LABS: PRO BRAIN NATRIURETIC PEPTIDE 1038 PG/ML (0-450)
[2025-07-29] MEDS: ipratropium/albuterol 3ml nebule NEB ONE (04:02)
[2025-07-29 04:05] VITALS: PULSE 78; RESP 8; O2SAT 94
[2025-07-29 04:14] VITALS: PULSE 73; RESP 16; O2SAT 97
[2025-07-29] MEDS ORDERED: PRED20TA PO (05:02)
[2025-07-29 05:03] VITALS: BP 142/60; PULSE 81; RESP 17; O2SAT 97
[2025-07-29 05:33] LABS: PLATELET ESTIMATE NORMAL
[2025-07-29 05:34] LABS: LARGE PLATELETS FEW
== END 2025-07-29 05:08 | disposition home or self-care (01) ==
LOC: ER 02:12
DX: J22 Unspecified acute lower respiratory infection (principal); J44.1 Chronic obstructive pulmonary disease with (acute) exacerbation; E78.00 Pure hypercholesterolemia, unspecified; I10 Essential (primary) hypertension; E11.9 Type 2 diabetes mellitus without complications; F41.9 Anxiety disorder, unspecified; F32.A Depression, unspecified; Z20.822 Contact with and (suspected) exposure to COVID-19; Z86.73 Personal history of transient ischemic attack (TIA), and cerebral infarction without residual deficits; Z79.82 Long term (current) use of aspirin
CPT/HCPCS: 36415; 71045; 80053; 83880; 85025; 87811; 94640; 96374; 99284; J2919; 85008; 94760